=== PATIENT | male | born 1945 | race Caucasian/White ===

== ENCOUNTER → 2016-07-14 | Outpatient (CLI) | payer OTHER, BC ==
[2016-07-14 08:19] LABS: ALT/SGPT 31 U/L (12-78); BLOOD UREA NITROGEN 17 mg/dl (7-18); BUN/CREATININE RATIO 13.8 (10-20); CARBON DIOXIDE 22 mmol/L (21-32); CHLORIDE 108 mmol/L (98-107); GLUCOSE 98 mg/dl (70-99); POTASSIUM 4.2 mmol/L (3.5-5.1); SODIUM 141 mmol/L (136-145)
[2016-07-14 08:22] LABS: ALB/GLOB RATIO 1.2 (0.9-2); ALKALINE PHOSPHATASE 63 U/L (45-117); AST/SGOT 17 U/L (15-37); CHOLESTEROL 144 mg/dl (0-200); CHOLESTEROL/HDL RATIO 3.5; HDL CHOLESTEROL 41 mg/dl; LDL CHOLESTEROL CALCULATED 78 mg/dl; TRIGLYCERIDES 125 mg/dl (0-150); VERY LOW DENSITY LIPOPROT CALC 25 mg/dl
[2016-07-14 08:29] LABS: ESTIMATED AVERAGE GLUCOSE 126 mg/dl; HA1C FLAG Normal (Normal)
--- NOTE | 2016-07-18 12:10 | CODING QUERY MEDICAL NECESSITY ---
SUPPORTING DIAGNOSIS NEEDED A supporting diagnosis is required for the test/procedure performed on this patient in order for us to be reimbursed by the patient's insurance. Please provide a supporting diagnosis for the following test/procedure listed below next to the test name along with your signature. *If there is no additional diagnosis for this patient that would support the following test/procedure please document that below next to the test/procedure. Test(s)/Procedure(s) that require a supporting diagnosis: DOS 07/14 * Hba1c DIAGNOSIS: * Lipids DIAGNOSIS: Provider Signature: Date: Thank you Navya Hollis Health Information Management Once completed, please kindly fax back to [phone] For questions please call [phone]
== END | disposition home or self-care (01) ==
LOC: C.LABFOXMH 07:41
PROVIDERS: ATTEND Internal Medicine
DX: E88.81 Metabolic syndrome and other insulin resistance (principal)

== ENCOUNTER → 2016-09-01 | Outpatient (CLI) | payer OTHER, BC | END | disposition home or self-care (01) | LOC: C.LABBC 15:23 | PROVIDERS: ATTEND Urology | DX: R97.20 Elevated prostate specific antigen [PSA] (principal) ==

== ENCOUNTER → 2016-11-17 | Outpatient (CLI) | payer OTHER, BC ==
[2016-11-17 10:41] LABS: CALCIUM 9.3 mg/dl (8.5-10.1)
[2016-11-17 10:45] LABS: BLOOD UREA NITROGEN 21 mg/dl (7-18); BUN/CREATININE RATIO 15.8 (10-20); CARBON DIOXIDE 27 mmol/L (21-32); CHLORIDE 106 mmol/L (98-107); CHOLESTEROL 148 mg/dl (0-200); GLUCOSE 93 mg/dl (70-99); POTASSIUM 4.2 mmol/L (3.5-5.1); SODIUM 141 mmol/L (136-145); TRIGLYCERIDES 108 mg/dl (0-150); VERY LOW DENSITY LIPOPROT CALC 22 mg/dl
[2016-11-17 10:50] LABS: CHOLESTEROL/HDL RATIO 3.9; HDL CHOLESTEROL 38 mg/dl; LDL CHOLESTEROL CALCULATED 88 mg/dl
[2016-11-17 11:21] LABS: ESTIMATED AVERAGE GLUCOSE 120 mg/dl; HA1C FLAG Normal (Normal)
--- NOTE | 2016-11-22 06:59 | CODING QUERY MEDICAL NECESSITY ---
SUPPORTING DIAGNOSIS NEEDED Dr. Guerra, A supporting diagnosis is required for the test/procedure performed on this patient in order for us to be reimbursed by the patient's insurance. Please provide a supporting diagnosis for the following test/procedure listed below next to the test name along with your signature. *If there is no additional diagnosis for this patient that would support the following test/procedure please document that below next to the test/procedure. Test(s)/Procedure(s) that require a supporting diagnosis: * [id number] GLYCATED HEMOGLOBIN DIAGNOSIS: DATE OF SERVICE: 11/17/16 Provider Signature: Date: Thank you Chriss Hernandez [facility] Information Management Once completed, please kindly fax back to [phone] For questions please call [phone]
== END | disposition home or self-care (01) ==
LOC: C.LABFOXMH 09:02
PROVIDERS: ATTEND Internal Medicine
DX: E88.81 Metabolic syndrome and other insulin resistance (principal); M62.81 Muscle weakness (generalized); E11.9 Type 2 diabetes mellitus without complications

== ENCOUNTER → 2016-11-30 | Outpatient (CLI) | payer OTHER, BC ==
[2016-11-30 18:07] LABS: HEMATOCRIT 43.1 % (42-52); MEAN CELL VOLUME 88.5 fL (80-100); MEAN CORPUSCULAR HEMOGLOBIN 29.2 pg (25-34); MEAN CORPUSCULAR HGB CONC 32.9 g/dl (32-36); MEAN PLATELET VOLUME 13.8 fL (7.4-10.4); PLATELET COUNT 123 K/uL (130-400); PLT ESTIMATE NORMAL; RED BLOOD COUNT 4.87 M/uL (4.7-6.1)
== END | disposition home or self-care (01) ==
LOC: C.LABBC 14:19
PROVIDERS: ATTEND Internal Medicine
DX: M79.1 Myalgia (principal)

== ENCOUNTER → 2017-02-28 | Outpatient (CLI) | payer OTHER, BC ==
[2017-02-28 14:13] LABS: % FREE PSA 12.8 %; FREE PSA 0.74 ng/ml; PROSTATE SPECIFIC ANTIGEN 5.78 ng/ml (0.000-4.000)
== END | disposition home or self-care (01) ==
LOC: C.LABBC 11:07
PROVIDERS: ATTEND Urology
DX: R97.20 Elevated prostate specific antigen [PSA] (principal)

== ENCOUNTER → 2017-03-27 | Outpatient (CLI) | payer OTHER, BC ==
[2017-03-27 09:11] LABS: BLOOD UREA NITROGEN 18 mg/dl (7-18); BUN/CREATININE RATIO 14.9 (10-20); CALCIUM 9.3 mg/dl (8.5-10.1); CARBON DIOXIDE 26 mmol/L (21-32); CHLORIDE 106 mmol/L (98-107); GLUCOSE 102 mg/dl (70-99); POTASSIUM 4.2 mmol/L (3.5-5.1); SODIUM 137 mmol/L (136-145)
== END | disposition home or self-care (01) ==
LOC: C.LABFOXMH 08:52
PROVIDERS: ATTEND Internal Medicine
DX: E11.9 Type 2 diabetes mellitus without complications (principal)

== ENCOUNTER → 2017-04-17 | Outpatient (CLI) | payer OTHER, BC ==
[2017-04-17 10:58] LABS: BLOOD UREA NITROGEN 16 mg/dl (7-18); BUN/CREATININE RATIO 14.6 (10-20); CREATININE 1.09 mg/dl (0.60-1.40)
== END | disposition home or self-care (01) ==
LOC: C.LABBC 08:33
PROVIDERS: ATTEND Urology
DX: N40.0 Benign prostatic hyperplasia without lower urinary tract symptoms (principal)

== ENCOUNTER → 2017-05-05 | Outpatient (CLI) | payer OTHER, BC ==
[~2017-05-05] MED LIST: GADAVIST IV PRN
--- NOTE | 2017-05-05 15:36 | DIAGNOSTIC IMAGING REPORT ---
PROSTATE MRI COMBO CLINICAL HISTORY: 71 years-old Male presenting with R97.20 Elevated prostate specific antigen (PSA). TECHNIQUE: Multisequence, multiplanar MR imaging of the prostate was performed before and after the administration of intravenous contrast. Additional postprocessing was performed on a separate PastBook workstation by the radiologist for 3-D volumetric segmentation of the prostate and contouring of region(s) of interest (JAIDEN) for targeting. IV contrast: 9 mL of Gadavist. COMPARISON: None. FINDINGS: Prostate: The prostate measures 5.9 x 4.5 x 4.8 cm (DynaCAD prostate boundary segmentation volume 64 mL). Moderate changes of benign prostatic hyperplasia. Precontrast T1 weighted imaging demonstrates no evidence of intrinsic T1 hyperintensity to suggest hemorrhage. Seminal vesicles normal. Relative atrophy of the left peripheral zone. Crescentic T2 hypointensity along the interface of the peripheral and transition zones at the left base is felt to most likely represent stromal hypertrophy. Diffusion hyperintensity in the left peripheral zone at the base localized is immediately adjacent to the stromal hypertrophy within a BPH nodule. No suspicious lesion is apparent in the transition or peripheral zones. Bladder: Bladder wall thickening likely indicating chronic outlet obstruction. Bowel: Visualized portion of the rectum normal. Peritoneum: No free fluid in the pelvis. Lymph nodes: No lymphadenopathy in the visualized portion of the pelvis. Vasculature: Iliac vessels patent. Abdominal wall: Postsurgical changes of the right inguinal region with mesh in place. No significant recurrent inguinal hernia. Osseous structures: Normal bone marrow signal intensity. IMPRESSION: 1. No suspicious lesion is apparent in the transition or peripheral zone for targeted biopsy. 2. Benign prostatic hyperplasia. Electronically signed by: Marcel Hansen M.D. 05/05/2017 3:35 PM Dictated Date/Time: 05/05/2017 3:24 PM
== END | disposition home or self-care (01) ==
LOC: C.MRIBC 13:12
PROVIDERS: ATTEND Urology
DX: N40.0 Benign prostatic hyperplasia without lower urinary tract symptoms (principal); R97.20 Elevated prostate specific antigen [PSA]

== ENCOUNTER → 2017-07-20 | Outpatient (CLI) | payer OTHER, BC | END | disposition home or self-care (01) | LOC: C.PATHSPEC 17:30 | PROVIDERS: ATTEND Urology | DX: R97.20 Elevated prostate specific antigen [PSA] (principal) ==

== ENCOUNTER 2024-10-23 11:52 | Inpatient (IN) ==
--- NOTE | 2024-10-23 12:43 | Emergency Department Note ---
Impression & Plan Dysphagia, Pancytopenia, Cancer of tongue, Acute dehydration ED Provider Note NAME: ERLINDA JAFFE AGE: 78 SEX: M : 1945 ARRIVES VIA: Walk-In INFORMANT: Patient, ED PROVIDER(S): Trip Rasmussen MD CHIEF COMPLAINT: Referral for dehydration possible PEG tube MEDICAL DECISION MAKING: Patient presents due to concern for weight loss in the setting of cancer with a dyne aphasia. IV was established and blood work was obtained. Patient was ordered IV fluids. Patient's blood work shows significant neutropenia with a white count of 490 with neutrophils less than 500. Patient hemoglobin 9.5. Kidney function with prerenal azotemia but intrinsic function is appropriate. Pro-Que is not elevated TSH is normal. Chest x-ray that shows the possibility of a left lower lobe pneumonia. Given the patient's significant neutropenia the patient was covered with cefepime and azithromycin. I did inform the patient the findings. I spoke with the inpatient service after speaking with the patient's oncologist Dr. Urias and the patient was admitted by Dr. Ramos. Discussion w/ other healthcare providers: Dr. Urias oncology Dr. Ramos inpatient medicine service Prior /Outside records reviewed: I reviewed a prior radiation oncology visit note from September 04. Patient with a known history of malignant neoplasm of the base of the tongue. Differential diagnosis: Infection, dehydration, metabolic abnormality, hypo/hyperglycemia, electrolyte imbalance, anemia, UTI, pneumonia, thyroid dysfunction among others were considered. Diagnostics, as interpreted by me: ECG: Sinus with PACs, rate of 86 normal intervals normal axis no ST elevation. Cardiac monitoring: An order was placed for continuous cardiac monitoring. The monitor shows a rate of 72 with sinus rhythm. Patient was placed on pulse oximetry Medical decision rules: None Imaging studies: I informally interpreted the patient's Chest x-ray shows questionable pneumonia left base with formal report to follow. HPI: Patient presents as referral from cancer center due to concern for poor p.o. intake weight loss and dehydration. Patient reportedly does have a history of head neck cancer. The patient is undergoing radiation therapy. The patient reports that he has lost approximately 30 pounds in the last month or so. The patient states that he thought that he was improving after having some difficulty several weeks ago but seem to worsen just in the last several days. Patient has been trying to do Ensure meal replacement without significant improvement. PAST MEDICAL HISTORY: See Below PAST SURGICAL HISTORY: See Below SOCIAL HISTORY: See Below HOME MEDICATIONS: See Below ALLERGIES: See Below VITALS: See Below PHYSICAL EXAMINATION: GENERAL: NAD, non-toxic. Wearing glasses. EYE EXAM: Normal conjunctiva. PERRL, no anisocoria and EOM's grossly intact w/o pain. OROPHARYNX: Moist mucus membranes, grossly normal dentition. Posterior pharynx with secretions noted. No obvious mass noted. NECK: Trachea midline, no stridor. Supple, no nuchal rigidity, no adenopathy, non-tender. No signs of meningismus. FROM of the neck with good chin to chest and neck extension. LUNGS: Clear to auscultation. Normal chest wall mechanics. HEART: NSR, no MRG. ABDOMEN: Abdomen soft, non-tender, no masses, no rebound or guarding. BACK: No CVA TTP. SKIN: No rashes and no bruising. UPPER EXTREMITIES: Upper extremities are grossly normal. LOWER EXTREMITIES: Grossly normal, no edema. NEURO EXAM: Awake and alert, follows commands, no obvious facial asymmetry, normal speech, moves all 4 extremities. 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) Gross hematuria Androgen deprivation therapy Prostate cancer (Chronic 03/30/23) Elevated prostate specific antigen (PSA) Arthritis (Acute) BPH NOS w ur obs/LUTS (Acute) History of elevated PSA (Acute) Hypercholesterolemia (Acute) Kidney disease (Acute) Medical History Tobacco user Seborrheic keratoses (05/25/21) Seasonal allergies Inflamed seborrheic keratosis HTN (hypertension) Hemangioma (12/02/20) Body mass index [BMI] 33.0-33.9, adult (08/27/21) 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 Mother No problems noted. Social History Smoking Status: Former smoker Tobacco Type: Cigars Cigarettes Per Day: infrequent cigar smoking, has been a month or two; Second Hand Exposure: Yes; Do You Dip or Chew Tobacco: No; Hx Alcohol Use: No Hx Substance Use: No Preferred Language: Sami Communication Ability: Effective Visual Impairment: Limited Hearing Ability: Normal Windows Technical Specialist Required: No Beliefs That Will Affect Care: None Current Living Situation: Personal Care Facility current occupational status: retired Feels Safe at Home: Yes Safety Concerns: Feels Safe At This Time Childhood Exposure to Second-Hand Smoke: Yes Diet: regular Diet Comment: low fat caffeine: Yes during the past year weight has: remained stable Dental Care, Regularly: Yes Assistive Devices: None Allergies Allergies Allergy/AdvReac Type Severity Reaction Status Date / Time grass pollen Allergy Congested Verified 10/28/24 15:23 house dust Allergy Congested Verified 10/28/24 15:23 tree and shrub pollen Allergy Congested Verified 10/28/24 15:23 weed pollen Allergy Congested Verified 10/28/24 15:23 Home Meds Home Medications Medication Instructions Recorded Confirmed cholecalciferol (vitamin D3) 50 2,000 units PO DAILY 01/09/19 10/23/24 mcg (2,000 unit) capsule acetaminophen 325 mg tablet 650 mg PO HS 04/18/23 10/23/24 fluticasone propionate 50 1 spray intranasal DAILY PRN 04/18/23 10/23/24 mcg/actuation nasal allergies spray,suspension abiraterone 500 mg tablet (Zytiga) 1,000 mg PO UD 07/17/23 10/23/24 prednisone 5 mg tablet 5 mg PO UD 07/17/23 10/23/24 lisinopril 5 mg tablet 5 mg PO DAILY 08/14/23 10/23/24 coenzyme Q10 100 mg tablet 200 mg PO DAILY 04/22/24 10/23/24 psyllium husk 3.4 gram/5.4 gram 1 tbsp PO DAILY 04/22/24 10/23/24 oral powder ferrous sulfate 325 mg (65 mg 325 mg PO DAILY 06/06/24 10/23/24 iron) tablet (FeroSul) rosuvastatin 20 mg tablet 20 mg PO .MonFri 06/06/24 10/23/24 vitamin E (dl, acetate) 180 mg 180 mg PO DAILY 06/06/24 10/23/24 (400 unit) capsule calcium 600 mg (as carbonate)-vit 1 tab PO DAILY 09/04/24 10/23/24 D3 10 mcg (400 unit) chewable tablet (Calcium 600 with Vitamin D3) mecobalamin (vitamin B12) 5,000 5,000 mcg PO DAILY 09/04/24 10/23/24 mcg disintegrating tablet loratadine 10 mg tablet 10 mg PO DAILY 09/30/24 10/23/24 benzonatate 100 mg capsule 100 mg PO BID PRN Cough 10/21/24 10/23/24 ondansetron 8 mg disintegrating 8 mg PO Q8H PRN nausea and vomiting 10/21/24 10/23/24 tablet prochlorperazine maleate 10 mg 10 mg PO Q8H PRN n/v 10/21/24 10/23/24 tablet Previous Rx's Medication Instructions Recorded leuprolide (3 month) 22.5 mg (3 22.5 mg subcut ONCE Prostate 08/14/24 month) subcutaneous syringe Cancer #1 ea (Ed) Magic Mouthwash 300 mL mouthwash 10 ml mucous membrane ACHS PRN 10/22/24 sore throat #300 mL Results & Data (ED) Vital Signs Vital Signs - 24 hr 10/23/24 11:53 Temperature 37.1 C Temperature Source Oral Pulse Rate 94 H Pulse Strength Normal Respiratory Rate 17 Respiratory Effort / Characteristics Non-Labored Spontaneous Respiratory Depth Normal Respiratory Pattern Regular Blood Pressure 110/70 Blood Pressure Mean 83 Blood Pressure Position Sitting Pulse Oximetry 98 Oxygen Delivery Method Room Air Sepsis Recent Fever Within 48 Hours No Sepsis New/Unexplained Change in Mental Status No Sepsis Action Taken by Nursing No Action Required Home Medications Current Medication List: was personally reviewed by me Laboratory Data Attestation: I reviewed the patient's lab results. 10/28/24 05:43 10/28/24 05:43 Lab Results 10/23/24 10/23/24 Range/Units 12:57 12:59 WBC 0.49 L* (4.8-10.8) K/ul RBC 3.21 L (4.70-6.10) M/uL Hgb 9.5 L (14.0-18.0) g/dl Hct 28.1 L (42.0-52.0) % MCV 87.5 (80.0-100.0) fL MCH 29.6 (25.0-34.0) pg MCHC 33.8 (32.0-36.0) g/dL RDW Std Deviation 42.2 (36.4-46.3) fL RDW Coeff of Amelia 14.7 H (11.5-14.5) % Plt Count 41 L (130-400) K/uL MPV 11.9 (9.4-12.4) fL Neut # (Auto) < 0.50 L* (1.40-6.50) K/uL Toxic Granulation 1+ Dohle Bodies 1+ PT 11.6 (9.0-12.0) Seconds INR 1.1 (0.9-1.1) Sodium 139 (136-145) mmol/L Potassium 4.1 (3.5-5.1) mmol/L Chloride 103 (98-107) mmol/L Carbon Dioxide 27 (21-32) mmol/L Anion Gap 9 (3-11) BUN 38 H (6-23) mg/dl Creatinine 1.06 (0.6-1.4) mg/dl Est Cr Clr Drug Dosing 60.3 ml/min eGFR 71.83 BUN/Creatinine Ratio 35.8 H (10-20) Glucose 118 H (70-99(Fasting)) mg/dl Calcium 8.7 (8.6-10.3) mg/dl Phosphorus 2.7 (2.5-4.9) mg/dl Magnesium 1.9 (1.7-2.4) mg/dl Total Bilirubin 0.6 (0.2-1.0) mg/dl AST 17 (13-39) U/L ALT 19 (7-52) U/L Alkaline Phosphatase 75 (34-104) U/L Total Protein 6.5 (6.0-8.3) gm/dl Albumin 3.9 (3.4-5.0) gm/dl Globulin 2.6 (2.5-4.0) gm/dl Albumin/Globulin Ratio 1.5 (0.9-2) Procalcitonin 0.08 (0-0.5) ng/ml TSH 0.423 (0.300-4.500) uIu/ml Administered Medications Dextrose/Lactated Ringer's (D5w And Lactated Ringers) 1,000 mls @ 125 mls/hr IV .Q8H DIO Stop: 10/28/24 17:47 Last Infusion: 10/28/24 15:12 Dose: 0 mls/hr Documented By: Admin: 10/28/24 10:15 Dose: 125 mls/hr Documented By: Infusion: 10/28/24 09:10 Dose: Infused Documented By: VGFabio Admin: 10/28/24 01:10 Dose: 125 mls/hr Documented By: Infusion: 10/28/24 01:10 Dose: Infused Documented By: Admin: 10/27/24 17:08 Dose: 125 mls/hr Documented By: Infusion: 10/27/24 17:08 Dose: Infused Documented By: Admin: 10/27/24 09:13 Dose: 125 mls/hr Documented By: Infusion: 10/27/24 09:12 Dose: Infused Documented By: Admin: 10/27/24 01:01 Dose: 125 mls/hr Documented By: Infusion: 10/27/24 01:01 Dose: Infused Documented By: Admin: 10/26/24 16:53 Dose: 125 mls/hr Documented By: Infusion: 10/26/24 16:53 Dose: Infused Documented By: Admin: 10/26/24 08:58 Dose: 125 mls/hr Documented By: Infusion: 10/26/24 08:52 Dose: Infused Documented By: Admin: 10/26/24 00:35 Dose: 125 mls/hr Documented By: Infusion: 10/26/24 00:35 Dose: Infused Documented By: D Admin: 10/26/24 00:35 Dose: 125 mls/hr Documented By: Infusion: 10/26/24 00:34 Dose: Infused Documented By: D Admin: 10/25/24 16:34 Dose: 125 mls/hr Documented By: Infusion: 10/25/24 15:26 Dose: Infused Documented By: Infusion: 10/25/24 09:50 Dose: 125 mls/hr Documented By: Infusion: 10/25/24 08:54 Dose: 0 mls/hr Documented By: Infusion: 10/25/24 06:30 Dose: 125 mls/hr Documented By: Infusion: 10/25/24 06:10 Dose: 0 mls/hr Documented By: Admin: 10/25/24 06:10 Dose: 125 mls/hr Documented By: Infusion: 10/25/24 06:10 Dose: Infused Documented By: Admin: 10/24/24 22:39 Dose: 125 mls/hr Documented By: Infusion: 10/24/24 22:29 Dose: Infused Documented By: Admin: 10/24/24 14:28 Dose: 125 mls/hr Documented By: Infusion: 10/24/24 12:55 Dose: Infused Documented By: Admin: 10/24/24 04:55 Dose: 125 mls/hr Documented By: Infusion: 10/24/24 02:31 Dose: Infused Documented By: Admin: 10/23/24 18:31 Dose: 125 mls/hr Documented By: SAMM Vancomycin HCl (Vancomycin Hcl) 1,000 mg in 270 mls @ 200 mls/hr IV PREOP DIO; Protocol Stop: 10/28/24 18:00 Last Infusion: 10/28/24 14:10 Dose: Infused Documented By: Admin: 10/28/24 12:49 Dose: 200 mls/hr Documented By: LILIA Ondansetron HCl (Ondansetron Inj 2 Mg/Ml 2 Ml Vial) 4 mg IV Q6H PRN PRN Reason: Nausea And Vomiting Stop: 11/24/24 12:03 Last Admin: 10/26/24 16:53 Dose: 4 mg Documented By: Admin: 10/25/24 13:35 Dose: 4 mg Documented By: LORENA Discontinued Medications Filgrastim (Filgrastim 480 Mcg/0.8 Ml Syringe) 480 mcg SQ DAILY DIO Stop: 10/24/24 09:01 Last Admin: 10/24/24 10:03 Dose: 480 mcg Documented By: Admin: 10/23/24 18:31 Dose: 480 mcg Documented By: CSE Sodium Chloride (Nss) 1,000 mls @ 999 mls/hr IV .Q1H1M DIO Stop: 10/23/24 13:45 Last Infusion: 10/23/24 13:59 Dose: Infused Documented By: Admin: 10/23/24 12:49 Dose: 999 mls/hr Documented By: MONA Ceftriaxone Sodium (Rocephin) 2,000 mg in 50 mls @ 100 mls/hr IV NOW STA Stop: 10/23/24 14:18 Last Admin: 10/23/24 14:33 Dose: Not Given Documented By: RADHA Azithromycin (Zithromax) 500 mg in 255 mls @ 127.5 mls/hr IV NOW ONE Stop: 10/23/24 15:48 Last Infusion: 10/23/24 18:37 Dose: Infused Documented By: Admin: 10/23/24 15:53 Dose: 127.5 mls/hr Documented By: PERRY Cefepime HCl (Maxipime 2000mg) 2,000 mg in 20 mls @ 5 mls/min IV NOW STA; Protocol Stop: 10/23/24 14:25 Last Admin: 10/23/24 15:52 Dose: 5 mls/min Documented By: PERRY Sodium Chloride (Nss) 1,000 mls @ 999 mls/hr IV .Q1H1M ONE Stop: 10/23/24 15:24 Last Infusion: 10/23/24 16:25 Dose: Infused Documented By: Admin: 10/23/24 15:17 Dose: 999 mls/hr Documented By: RADHA Cefepime HCl (Maxipime 2000mg) 2,000 mg in 20 mls @ 5 mls/min IV Q8H [facility]; Protocol Stop: 10/29/24 00:00 Last Admin: 10/25/24 17:25 Dose: Not Given Documented By: Admin: 10/25/24 09:50 Dose: 5 mls/min Documented By: Admin: 10/24/24 22:38 Dose: 5 mls/min Documented By: Admin: 10/24/24 17:15 Dose: 5 mls/min Documented By: Admin: 10/24/24 08:35 Dose: 5 mls/min Documented By: Admin: 10/24/24 00:26 Dose: 5 mls/min Documented By: HFW Potassium Chloride (K Otto / Wtr) 10 meq in 100 mls @ 100 mls/hr IV Q1H DIO Stop: 10/25/24 10:29 Last Infusion: 10/25/24 12:57 Dose: Infused Documented By: Admin: 10/25/24 11:40 Dose: 100 mls/hr Documented By: Infusion: 10/25/24 11:40 Dose: Infused Documented By: Admin: 10/25/24 10:40 Dose: 100 mls/hr Documented By: Infusion: 10/25/24 10:37 Dose: Infused Documented By: Infusion: 10/25/24 09:50 Dose: 100 mls/hr Documented By: Infusion: 10/25/24 08:55 Dose: 0 mls/hr Documented By: Admin: 10/25/24 08:41 Dose: 100 mls/hr Documented By: LORENA Potassium Chloride (K Otto / Wtr) 10 meq in 100 mls @ 100 mls/hr IV Q1H DIO Stop: 10/26/24 09:29 Last Infusion: 10/26/24 11:03 Dose: Infused Documented By: Admin: 10/26/24 10:02 Dose: 100 mls/hr Documented By: Infusion: 10/26/24 10:02 Dose: Infused Documented By: Admin: 10/26/24 08:59 Dose: 100 mls/hr Documented By: AKUA Potassium Chloride (K Otto / Wtr) 10 meq in 100 mls @ 100 mls/hr IV Q1H DIO Stop: 10/27/24 11:59 Last Infusion: 10/27/24 15:53 Dose: Infused Documented By: Admin: 10/27/24 14:32 Dose: 100 mls/hr Documented By: Infusion: 10/27/24 14:32 Dose: Infused Documented By: Admin: 10/27/24 13:30 Dose: 100 mls/hr Documented By: Infusion: 10/27/24 13:29 Dose: Infused Documented By: Admin: 10/27/24 12:28 Dose: 100 mls/hr Documented By: Infusion: 10/27/24 12:27 Dose: Infused Documented By: Admin: 10/27/24 11:27 Dose: 100 mls/hr Documented By: AKUA Cefazolin Sodium (Ancef 2000mg) 2,000 mg in 15 mls @ 3.75 mls/min IV PREOP ONE; Protocol Stop: 10/28/24 13:22 Last Admin: 10/28/24 15:30 Dose: 3.75 mls/min Documented By: SAMSON Phytonadione (Phytonadione 5 Mg Tab) 5 mg PO NOW STA Stop: 10/27/24 10:26 Last Admin: 10/27/24 11:27 Dose: 5 mg Documented By: MRE Imaging Data Radiologist's Impression: Chest X-Ray 10/23/24 12:43 XR chest 1V portable CLINICAL HISTORY: cough COMPARISON STUDY: 10/09/2024 FINDINGS: Heart size and pulmonary vasculature are normal. There is mildly increased stranding at the left base. No other consolidation or pleural effusion. IMPRESSION: Atelectasis versus early pneumonia left lung base. ACT 112: Negative or not required by law. Electronically signed by: Alfonzo Galdamez M.D. 10/23/2024 1:24 PM Discharge Plan Visit Data Chief Complaint: Feeding/PEG Tube Replacement Stated Complaint: MAL NUTRITION, FEEDING TUBE, FROM [facility] ED Provider: Trip Rasmussen Discharge Problem: Dysphagia, Pancytopenia, Cancer of tongue, Acute dehydration Patient Disposition: Admitted As Inpatient Condition: Good Discharge Instructions Interventions: ED Discharge Assessment Last Done: 10/23/24 20:00 Discharge Problem: Dysphagia Qualifiers: Dysphagia type: unspecified Qualified Code(s): R13.10 - Dysphagia, unspecified
[2024-10-23] MEDS: SODIUM CHLORIDE 0.9% 1,000 ML IV SCH (12:49)
--- NOTE | 2024-10-23 13:26 | XRay Report ---
XR chest 1V portable CLINICAL HISTORY: cough COMPARISON STUDY: 10/09/2024 FINDINGS: Heart size and pulmonary vasculature are normal. There is mildly increased stranding at the left base. No other consolidation or pleural effusion. IMPRESSION: Atelectasis versus early pneumonia left lung base. ACT 112: Negative or not required by law. Electronically signed by: Alfonzo Galdamez M.D. 10/23/2024 1:24 PM
[2024-10-23 13:38] LABS: Neutrophils # (auto) < 0.50 K/uL (1.40-6.50); White Blood Count 0.49 K/ul (4.8-10.8)
[2024-10-23 13:42] LABS: Albumin Globulin Ratio 1.5 (0.9-2); Albumin Level 3.9 gm/dl (3.4-5.0); BUN Creatinine Ratio 35.8 (10-20); Bilirubin,Total 0.6 mg/dl (0.2-1.0); Calcium 8.7 mg/dl (8.6-10.3); Creatinine Clr Calc Pharmacy 60.3 ml/min; Globulin 2.6 gm/dl (2.5-4.0); Magnesium 1.9 mg/dl (1.7-2.4); Phosphorus 2.7 mg/dl (2.5-4.9); Potassium 4.1 mmol/L (3.5-5.1); Total Protein 6.5 gm/dl (6.0-8.3)
[2024-10-23 13:53] LABS: Hematocrit (blood only) 28.1 % (42.0-52.0); Hemoglobin 9.5 g/dl (14.0-18.0); Mean Corpuscular Hemoglobin 29.6 pg (25.0-34.0); Mean Corpuscular Hgb Conc 33.8 g/dL (32.0-36.0); Mean Corpuscular Volume 87.5 fL (80.0-100.0); Mean Platelet Volume 11.9 fL (9.4-12.4); Platelet Count 41 K/uL (130-400); RDW Coefficient of Variation 14.7 % (11.5-14.5); RDW Standard Deviation 42.2 fL (36.4-46.3); Red Blood Count 3.21 M/uL (4.70-6.10)
[2024-10-23 13:54] LABS: Dohle Bodies 1+; Thyroid Stimulating Hormone 0.423 uIu/ml (0.300-4.500); Toxic Granulation 1+
[2024-10-23] MEDS: cefTRIAXone SODIUM 2,000 MG/50 ML BAG IV STA (14:33)
--- NOTE | 2024-10-23 14:53 | History & Physical Report ---
Date of Service October 23, 2024 Assessment & Plan (1) Dysphagia: Plan: 78yo M under treatment for tongue cancer when chemo+radiation who presents with dysphagia, inadequate PO intake, 20lbs weight loss/4 weeks and who was referred for PEG placement. Dysphagia Without reported globus sensation or odynophagia w/ tongue cancer undergoing chemo and radiation.Referred by hematology oncology for placement of a PEG tube Does have some nausea however this patient is separate from this. 20 pounds of weight loss in the last month with inability to swallow any meaningful amount of liquid even small amounts of Ensure GI consulted for PEG tube placement Patient is neutropenic, G-CSF pending INR added. Platelet count 41. No signs of active bleeding. Goal periprocedural platelet count 50K. 1 unit of platelets ordered for transfusion given count less than 41. Requires irradiated blood products. If PEG is not placed tomorrow then defer additional platelet transfusion and trend CBC --> if remaining below 50K then give 1 unit day of procedure. N.p.o. at midnight RCRI class I risk. Tongue SCC SCC T1/N1 - Continue mouthwash twice daily Chemotherapy on hold, has completed 4 weeks of radiation Hematology/oncology following Pancytopenic in the setting of chemotherapy. Platelets ordered as noted. No indication for blood transfusion at this time Patient is neutropenic with suspected aspiration pneumonia. Confirmed with hematology/oncology that he is not getting any radiation to the chest. Appropriate candidate for GCSF. 4080 mcg x 2 days Prostate cancer Continued on surveillance PSAs, Ed Suspected aspiration left lung pneumonia Chest x-ray is with atelectasis versus left lung early pneumonia. Given neutropenia, increased cough, increased sputum production and ?aspiration --> treated empirically for potential developing pneumonia. He has not been febrile. - Cefepime q8h continued. - Sputum culture pending. Blood culture pending Hypertension Normotensive on admission Lisinopril held while n.p.o. DVT prophylaxis: SCDs. Pharmacal prophylaxis held both due to thrombocytopenia and pending PEG placement. If stable postprocedure add Lovenox CODE STATUS: Full code. For the patient bedside. In the event of an emergency his medical decision-maker would be Renetta Gtz available at [phone]. If she is not available then would want his friend Jose Multani to be his decision- maker, Jose is available at [phone]. Diet: N.p.o. Disposition: MSO (2) Malignant neoplasm of base of tongue: (3) BPH NOS w ur obs/LUTS: (4) Kidney disease: History of Present Illness Primary Care Provider: Jose Guerra MD Mr. 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 [address] Moreno so far for tongue cancer Is supposed to have 6 chemo treatments, 4th last week was cancelled and this weeks was cancelled due to feeling poorly and neutropenia Dung reports he has a lot of mucous drainage x3 weeks. He has had a chronic cough over that time and bringing up clear mucous. No fevers/chills/sweats. No dyspnea. Swallowing has been poor/getting worse x2-3 weeks, and seems much worse since radiation. Has been trying to drink ensure, but has trouble even getting small sips down. Does get nausea which is improved with zofran. Feels his inability to swallow is separate from his nause, and just cannot swallow. When he is able to get a small amount of liquid down he quickly coughs and brings up mucous. Has lost 24lbs (180.2lbs this morning, beginning of September 202.9lbs) in the last 4 weeks due to not being able to eat. Was told he might need a PEG which he would like if indicated. Urine output has decreased, but still voiding twice daily and urine is noticably dark last few days. No dysuria. No abdominal pain No globus sensation in the through NO chest pain, no chest pressure No history of ID no history of CVA No history of DM Has not been able to any meds for last few days due to inability to swallow Medical History: Reviewed Medications: Reviewed Surgical History: Reviewed Family history: Reviewed Allergies: Reviewed Social History: No tobacco/ETOH use Code Status: Full Allergies Allergy/AdvReac Type Severity Reaction Status Date / Time grass pollen Allergy Congested Verified 10/23/24 14:44 house dust Allergy Congested Verified 10/23/24 14:44 tree and shrub pollen Allergy Congested Verified 10/23/24 14:44 weed pollen Allergy Congested Verified 10/23/24 14:44 Home Medications Medication Instructions Recorded Confirmed Type cholecalciferol (vitamin D3) 50 2,000 units PO DAILY 01/09/19 10/23/24 History mcg (2,000 unit) capsule acetaminophen 325 mg tablet 650 mg PO HS 04/18/23 10/23/24 History fluticasone propionate 50 1 spray intranasal DAILY PRN 04/18/23 10/23/24 History mcg/actuation nasal allergies spray,suspension abiraterone 500 mg tablet (Zytiga) 1,000 mg PO UD 07/17/23 10/23/24 History prednisone 5 mg tablet 5 mg PO UD 07/17/23 10/23/24 History lisinopril 5 mg tablet 5 mg PO DAILY 08/14/23 10/23/24 History coenzyme Q10 100 mg tablet 200 mg PO DAILY 04/22/24 10/23/24 History psyllium husk 3.4 gram/5.4 gram 1 tbsp PO DAILY 04/22/24 10/23/24 History oral powder ferrous sulfate 325 mg (65 mg 325 mg PO DAILY 06/06/24 10/23/24 History iron) tablet (FeroSul) rosuvastatin 20 mg tablet 20 mg PO .MonFri 06/06/24 10/23/24 History vitamin E (dl, acetate) 180 mg 180 mg PO DAILY 06/06/24 10/23/24 History (400 unit) capsule leuprolide (3 month) 22.5 mg (3 22.5 mg subcut ONCE Prostate 08/14/24 10/23/24 Rx month) subcutaneous syringe Cancer #1 ea (Ed) calcium 600 mg (as carbonate)-vit 1 tab PO DAILY 09/04/24 10/23/24 History D3 10 mcg (400 unit) chewable tablet (Calcium 600 with Vitamin D3) mecobalamin (vitamin B12) 5,000 5,000 mcg PO DAILY 09/04/24 10/23/24 History mcg disintegrating tablet loratadine 10 mg tablet 10 mg PO DAILY 09/30/24 10/23/24 History benzonatate 100 mg capsule 100 mg PO BID PRN Cough 10/21/24 10/23/24 History ondansetron 8 mg disintegrating 8 mg PO Q8H PRN nausea and vomiting 10/21/24 10/23/24 History tablet prochlorperazine maleate 10 mg 10 mg PO Q8H PRN n/v 10/21/24 10/23/24 History tablet Magic Mouthwash 300 mL mouthwash 10 ml mucous membrane ACHS PRN 10/22/24 10/23/24 Rx sore throat #300 mL Past Med/Surg History Problem List (Updated 10/23/24 @ 16:14 by Marcel Ramos MD) Dysphagia Malignant neoplasm of base of tongue (Chronic 08/12/24) Gross hematuria Androgen deprivation therapy Prostate cancer (Chronic 03/30/23) Elevated prostate specific antigen (PSA) Arthritis (Acute) BPH NOS w ur obs/LUTS (Acute) History of elevated PSA (Acute) Hypercholesterolemia (Acute) Kidney disease (Acute) Surgical History (Updated 07/23/24 @ 09:40 by Gabriela Dallas RN) History of biopsy (07/03/24) FNA Left Neck Status post biopsy of kidney H/O excision of hemangioma History of colonoscopy (2022) Family History (Updated 04/18/23 @ 08:16 by Gabriela Dallas RN) Father No problems noted. Mother No problems noted. Social History (Updated 04/18/23 @ 08:19 by Gabriela Dallas RN) Smoking Status: Former smoker Tobacco Type: Cigars Cigarettes Per Day: infrequent cigar smoking, has been a month or two; Second Hand Exposure: Yes; Do You Dip or Chew Tobacco: No; Hx Alcohol Use: No Hx Substance Use: No Preferred Language: Setswana Communication Ability: Effective Visual Impairment: Limited Hearing Ability: Normal Machine Milker Required: No Beliefs That Will Affect Care: Spiritual current occupational status: retired Feels Safe at Home: Yes Childhood Exposure to Second-Hand Smoke: Yes Diet: regular Diet Comment: low fat caffeine: Yes during the past year weight has: remained stable Dental Care, Regularly: Yes Assistive Devices: Glasses Physical Exam Physical Exam: General: A&Ox3. NAD. Cooperative. HEENT: Atraumatic, normocephalic. Pulm: CTAB A&P. -wheezes, -rales, -rhonchi. Symmetrical chest rise. No increased work of breathing. No respiratory distress. Cardiac: RRR, -mrg. Radial pulses intact and symmetrical. Abdominal: Nontender, nondistended, soft. BS present. +numerous ochoa angiomas. Ext: warm, dry Results & Data Results & Data Vital Signs (Past 12 Hours) Vital Signs Temp Pulse Pulse Resp BP BP Pulse Ox 10/23/24 14:00 85 20 123/69 94 10/23/24 13:02 85 10/23/24 12:59 85 25 H 123/69 94 10/23/24 11:53 37.1 C 94 H 17 110/70 98 O2 Del Method 10/23/24 14:00 Room Air 10/23/24 13:02 10/23/24 12:59 Room Air 10/23/24 11:53 Room Air PG Care Time/CCT Total # of Minutes Spent Total Time Spent with Patient: Total time spent is greater than 50% in coordination of care (as documented) at patient's floor/unit and/or counseling patient: Coding Level of Care Code 15204 INT INP/OBS CARE 3/75MIN Diagnoses Dysphagia R13.10 Malignant neoplasm of base of tongue C01 BPH NOS w ur obs/LUTS N40.1 Kidney disease N28.9
[2024-10-23] MEDS: SODIUM CHLORIDE 0.9% 1,000 ML IV ONE (15:17)
[2024-10-23] MEDS: CEFEPIME 2000MG 2,000 MG/20 ML SYR IV STA (15:52)
[2024-10-23] MEDS: AZITHROMYCIN 500 MG/255 ML BAG IV ONE (15:53)
[2024-10-23] MEDS ORDERED: MoRPHine SULFATE 2 MG/ML CARP IV PRN (16:16)
[2024-10-23] MEDS ORDERED: ACETAMINOPHEN 1,000 MG/100 ML VIAL IV PRN (16:16)
--- NOTE | 2024-10-23 16:28 | Electrocardiogram Report ---
Test Reason : Blood Pressure : */* mmHG Vent. Rate : 86 BPM Atrial Rate : 86 BPM P-R Int : 132 ms QRS Dur : 100 ms QT Int : 370 ms P-R-T Axes : 52 0 27 degrees QTcB Int : 442 ms Sinus rhythm with Premature atrial complexes Otherwise normal ECG No previous ECGs available Confirmed by Mic Lee ([id number]) on 10/23/2024 4:27:31 PM Referred By: REFERRED SELF Confirmed By: Mic Lee
[2024-10-23] MEDS ORDERED: SODIUM CHLORIDE 0.9% 100 ML IV PRN (17:48)
[2024-10-23 18:13] LABS: INR 1.1 (0.9-1.1); Prothrombin Time 11.6 Seconds (9.0-12.0)
[2024-10-23] MEDS: D5W AND LACTATED RINGERS 1,000 ML IV SCH (18:31)
[2024-10-23] MEDS: FILGRASTIM 480 MCG/0.8 ML SYRINGE SQ SCH (18:31)
[2024-10-24] MEDS: CEFEPIME 2000MG 2,000 MG/20 ML SYR IV SCH (00:26)
[2024-10-24 06:25] LABS: BUN Creatinine Ratio 36.9 (10-20); Calcium 7.9 mg/dl (8.6-10.3); Potassium 3.6 mmol/L (3.5-5.1)
[2024-10-24 06:37] LABS: Hematocrit (blood only) 23.3 % (42.0-52.0); Hemoglobin 7.9 g/dl (14.0-18.0); Mean Corpuscular Hemoglobin 29.4 pg (25.0-34.0); Mean Corpuscular Hgb Conc 33.9 g/dL (32.0-36.0); Mean Corpuscular Volume 86.6 fL (80.0-100.0); Mean Platelet Volume 12.3 fL (9.4-12.4); Platelet Count 43 K/uL (130-400); RDW Coefficient of Variation 14.6 % (11.5-14.5); RDW Standard Deviation 41.8 fL (36.4-46.3); Red Blood Count 2.69 M/uL (4.70-6.10); White Blood Count 0.71 K/ul (4.8-10.8)
[2024-10-24 06:43] LABS: INR 1.2 (0.9-1.1); Prothrombin Time 12.4 Seconds (9.0-12.0)
[2024-10-24 07:23] LABS: ALC (manual) 0.18 K/uL (1.2-3.4); ANC (manual) 0.29 K/uL (1.4-6.5); Blast # (manual) 0.01 K/uL (0-0); Blast Cells % (manual) 2 %; Dohle Bodies 1+; Lymphocytes # (manual) 0.18 K/uL (1.2-3.4); Lymphocytes % (manual) 26 %; Monocytes # (manual) 0.22 K/uL (0.11-0.59); Monocytes % (manual) 31 %; Neutrophils # (manual) 0.29 K/uL (1.40-6.50); Neutrophils % (manual) 41 %; Ovalocytes 1+; Polychromasia 1+; Toxic Granulation 2+; Toxic Vacuolation 1+
--- NOTE | 2024-10-24 07:32 | Hospitalist Progress Note ---
Date of Service October 24, 2024 Assessment & Plan (1) Dysphagia: (2) Malignant neoplasm of base of tongue: (3) Pancytopenia: Plan #Dysphagia: - difficulty swallowing for the past 4 weeks - weight loss of 20 pounds - no globus sensation or pain with swallowing - GI consulted - pending PEG placement tomorrow afternoon 10/25 pending platelets over 50k, NPO at midnight tonight #Tongue cancer: - in the middle of radiation and has completed 3 chemotherapy treatments out of a planned 6 - previous two chemotherapy treatments held due to feeling poorly #Pancytopenia: - WBCs remaining stable yet very low: 0.79 -> 0.49 -> 0.71 - platelets slightly improvin -> 41 -> 43 - Hgb trending down: 10.3 -> 9.5 -> 7.9 - plan for 1 unit of platelets before PEG placement #Aspiration pneumonia vs. atelectasis: - chest x-ray showed mildly increased stranding at the left base - atelectasis versus left lung early pneumonia - course lung sounds bilaterally - treated empirically for potential developing pneumonia with cefepime q8 - sputum culture grew staph aureus - blood culture pending #Hyperlipidemia: - holding rosuvastatin pending PEG placement Dispo: med/surg Diet: NPO Code Status: full code DVT PPx: SCDs Admission and Anticipated Discharge Date Admission Date: October 23, 2024 Supervising Physician Co-Signing Physician Notes I personally examined the patient and verified all pina points of history and exam, discussed case, and agree with decision making with Dr Acuña and Fabio Staton MS2 feeling reasonably ok. does have a lot of mucous and some coughing fits, but no cp no sob no tan no fevers vitals noted nad heent nc at mmm lungs cta b/l no rrw good effort skin no rashes no pallor or icterus severe protein calorie malnutrition - due to tongue cancer. for PEG neutropenia/thrombocytopenia - due to chemotherapy. productive cough - no hypoxia, fever, cp, SOB/TAN, CXR questionable infiltrate but not overt, lungs clear, but is quite neutropenic - will continue abx for now, serial exams/serial labs but not convinced there's truly a pneumonia, may be able to dc abx soon tongue cancer - ongoing XRT/chemo once nutrition situation better remedied DVT proph - pharmacologic contrainidcated due to thrombocytopenia, SCDs ordered Subjective Dung Moser is a 78 year old male currently undergoing treatment for tongue cancer who presented to the ED on 10/24 at the advice of heme/onc due to a 20# weight loss over the past four weeks due to dysphagia. He is awaiting PEG tube placement by GI. This morning, Dung is feeling better than yesterday. He says he feels he is able to swallow some today. He reports that his main difficulty with eating has been pain with swallowing, no globus sensation. He used Magic Mouthwash, but still had pain. He reports that he was drinking two Ensures per day up until 3 days ago when he was only able to take a few sips per day. He stopped his oral medications four days ago due to inability to swallow. He has had nausea throughout chemotherapy which has been managed with ondansetron. Occasional vomiting with chemotherapy. No abdominal pain. No issues with urination. Regarding his respiratory symptoms, he reports that he has had a large amount of clear stringy mucous over the past 3 weeks. He said this happened one time in the past about a year ago and cleared. He has not felt short of breath or had chest pain, does feel he chokes on his breath when he takes a deep breath. Cough occurs only to bring up mucous. Does not recall choking or aspirating on food. Review of Systems 2 Review of Systems: As per HPI. Physical Exam 2 Physical Exam: GENERAL: A&Ox3. No acute distress. Appears stated age. Affect and speech appropriate. HEENT: PERRLA, EOMI, Conjunctiva clear. NECK: Supple, No lymphadenopathy. No carotid bruits. HEART: RRR. No murmurs, gallops or clicks. LUNGS: Breathing not labored, course breath sounds bilaterally. ABDOMEN: Positive bowel sounds, soft, nontender, non-distended. No hepatosplenomegaly noted. No masses. EXTREMITIES: No edema, clubbing or cyanosis. No joint swelling or tenderness. Results & Data Results & Data Vital Signs (Past 12 Hours) Vital Signs Temp Pulse Pulse Resp BP BP Pulse Ox 10/23/24 22:14 36.8 C 76 16 96/61 L 96 10/23/24 22:14 36.8 C 76 16 96/61 L 96 10/23/24 21:43 36.9 C 80 18 99/61 L 96 10/23/24 20:43 36.8 C 81 18 114/65 96 10/23/24 20:13 36.8 C 78 18 114/71 96 10/23/24 19:58 36.7 C 86 16 108/68 95 10/23/24 19:55 10/23/24 19:42 36.8 C 86 18 117/57 L 95 10/23/24 19:35 36.8 C 86 18 117/57 L 95 O2 Del Method 10/23/24 22:14 10/23/24 22:14 10/23/24 21:43 10/23/24 20:43 10/23/24 20:13 10/23/24 19:58 10/23/24 19:55 Room Air 10/23/24 19:42 10/23/24 19:35 Room Air Laboratory Results 10/24/24 05:37 10/24/24 05:37 Resident Activity Tracking Resident Involvement: Resident Care Provided Care Provided: Adult [facility] Resident Supervision Co-Signing Physician Notes I personally performed the physical examination and medical decision making. I have verified the medical students documentation for this encounter - exceptions noted as below Doing well. Still having difficulty swallowing. Planning for PEG Gen: well appearing patient in NAD HEENT: AT NC MMM Resp: no increased work of breathing CV: clinically well perfused Abd: non-distended MSK: no obvious deformities Skin: no rashes or bruising Neuro: alert and oriented Psych: appropriate mood and affect #Oropharyngeal Cancer #Dysphagia Ongoing chemotherapy for tongue cancer. Developing dysphagia over the last 4 weeks with significant weight loss. Consult speech. Plan for PEG tomorrow for ongoing nutrition needs. NPO @ midnight. Give 1 unit of platelets day of procedure - irradiated as patient neutropenic. Emulsion Operator consulted. #Pancytopenia Severe, likely in the setting of chemotherapy. Plan as above. Continue neutropenic precautions #Aspiration pneumonia vs atelectasis incentive spirometry, flutter valve, empiric abx pending culture results
--- NOTE | 2024-10-24 10:45 | Gastrointestinal Consultation ---
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 EGD w/ PEG placement discussed in detail. We will need PLT count over 50 and his neutropenia to resolve prior to EGD w/ PEG placement. He verbalized understand. Keep NPO after midnight to re-assess tomorrow as his counts do appear to be trending up We appreciate assistance in the management of any serological abnormality and corrections to include: hemoglobin >7, INR <2, platelets >50,000, potassium levels >3.5 but <5.3, and sodium levels within 5 points of the reference range prior to endoscopic evaluation. Thank you for allowing us to participate in the care of this patient. Please call with any acute changes, questions or concerns. Please see addendum below with additional recommendation from my supervising physician. (2) Malignant neoplasm of base of tongue: Supervising Physician Co-Signing Physician Notes I personally saw and examined the patient. I have reviewed the chart and agree with the documentation provided by the PRINCIPAL SOFTWARE ARCHITECT including discussion about the assessment, treatment and plan. 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 EGD w/ PEG placement discussed in detail. He notes he has had difficulty with oral intake related to oral pain/discomfort for at least 2-3 weeks but this has significant worsened about four days ago. Pain is slightly improved this AM but still ongoing/present. Very nice gentleman who has a good Mallampati he can open his mouth and needs a PEG. We have to wait until his platelets and neutropenia resolve noted to place this PEG safely. 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 EGD w/ PEG placement discussed in detail. He notes he has had difficulty with oral intake related to oral pain/discomfort for at least 2-3 weeks but this has significant worsened about four days ago. Pain is slightly improved this AM but still ongoing/present. Allergies Allergy/AdvReac Type Severity Reaction Status Date / Time grass pollen Allergy Congested Verified 10/23/24 14:44 house dust Allergy Congested Verified 10/23/24 14:44 tree and shrub pollen Allergy Congested Verified 10/23/24 14:44 weed pollen Allergy Congested Verified 10/23/24 14:44 Home Medications Medication Instructions Recorded Confirmed Type cholecalciferol (vitamin D3) 50 2,000 units PO DAILY 01/09/19 10/23/24 History mcg (2,000 unit) capsule acetaminophen 325 mg tablet 650 mg PO HS 04/18/23 10/23/24 History fluticasone propionate 50 1 spray intranasal DAILY PRN 04/18/23 10/23/24 History mcg/actuation nasal allergies spray,suspension abiraterone 500 mg tablet (Zytiga) 1,000 mg PO UD 07/17/23 10/23/24 History prednisone 5 mg tablet 5 mg PO UD 07/17/23 10/23/24 History lisinopril 5 mg tablet 5 mg PO DAILY 08/14/23 10/23/24 History coenzyme Q10 100 mg tablet 200 mg PO DAILY 04/22/24 10/23/24 History psyllium husk 3.4 gram/5.4 gram 1 tbsp PO DAILY 04/22/24 10/23/24 History oral powder ferrous sulfate 325 mg (65 mg 325 mg PO DAILY 06/06/24 10/23/24 History iron) tablet (FeroSul) rosuvastatin 20 mg tablet 20 mg PO .MonFri 06/06/24 10/23/24 History vitamin E (dl, acetate) 180 mg 180 mg PO DAILY 06/06/24 10/23/24 History (400 unit) capsule leuprolide (3 month) 22.5 mg (3 22.5 mg subcut ONCE Prostate 08/14/24 10/23/24 Rx month) subcutaneous syringe Cancer #1 ea (Ed) calcium 600 mg (as carbonate)-vit 1 tab PO DAILY 09/04/24 10/23/24 History D3 10 mcg (400 unit) chewable tablet (Calcium 600 with Vitamin D3) mecobalamin (vitamin B12) 5,000 5,000 mcg PO DAILY 09/04/24 10/23/24 History mcg disintegrating tablet loratadine 10 mg tablet 10 mg PO DAILY 09/30/24 10/23/24 History benzonatate 100 mg capsule 100 mg PO BID PRN Cough 10/21/24 10/23/24 History ondansetron 8 mg disintegrating 8 mg PO Q8H PRN nausea and vomiting 10/21/24 10/23/24 History tablet prochlorperazine maleate 10 mg 10 mg PO Q8H PRN n/v 10/21/24 10/23/24 History tablet Magic Mouthwash 300 mL mouthwash 10 ml mucous membrane ACHS PRN 10/22/24 10/23/24 Rx sore throat #300 mL Patient History Surgical History (Updated 07/23/24 @ 09:40 by Gabriela Dallas RN) History of biopsy (07/03/24) FNA Left Neck Status post biopsy of kidney H/O excision of hemangioma History of colonoscopy (2022) Family History (Updated 04/18/23 @ 08:16 by Gabriela Dallas RN) Father No problems noted. Mother No problems noted. Social History (Updated 04/18/23 @ 08:19 by Gabriela Dallas RN) Smoking Status: Former smoker Tobacco Type: Cigars Cigarettes Per Day: infrequent cigar smoking, has been a month or two; Second Hand Exposure: Yes; Do You Dip or Chew Tobacco: No; Hx Alcohol Use: No Hx Substance Use: No Preferred Language: Iraqi Communication Ability: Effective Visual Impairment: Limited Hearing Ability: Normal Curriculum Assistant Principal Required: No Beliefs That Will Affect Care: None Current Living Situation: Personal Care Facility current occupational status: retired Feels Safe at Home: Yes Safety Concerns: Feels Safe At This Time Childhood Exposure to Second-Hand Smoke: Yes Diet: regular Diet Comment: low fat caffeine: Yes during the past year weight has: remained stable Dental Care, Regularly: Yes Assistive Devices: None Review of Systems Review of Systems: All other findings negative except as noted in HPI. Physical Exam Constitutional: WD/WN, vitals as above Gastrointestinal (Abdomen): normal bowel sounds, soft, nontender, no hepatosplenomegaly Skin: no rashes, warm and dry Results & Data Vital Signs (Past 12 Hours) Vital Signs Temp Pulse Resp BP Pulse Ox O2 Del Method 10/24/24 07:41 98.1 F 68 16 104/65 98 Room Air Laboratory Results 10/24/24 10/23/24 10/23/24 Range/Units 05:37 16:29 12:59 WBC 0.71 L* 0.49 L* (4.8-10.8) K/ul RBC 2.69 L 3.21 L (4.70-6.10) M/uL Hgb 7.9 L 9.5 L (14.0-18.0) g/dl Hct 23.3 L 28.1 L (42.0-52.0) % MCV 86.6 87.5 (80.0-100.0) fL MCH 29.4 29.6 (25.0-34.0) pg MCHC 33.9 33.8 (32.0-36.0) g/dL RDW Std Deviation 41.8 42.2 (36.4-46.3) fL RDW Coeff of Amelia 14.6 H 14.7 H (11.5-14.5) % Plt Count 43 L 41 L (130-400) K/uL MPV 12.3 11.9 (9.4-12.4) fL Neut # (Auto) < 0.50 L* (1.40-6.50) K/uL Neutrophils % (Manual) 41 % Lymphocytes % (Manual) 26 % Monocytes % (Manual) 31 % Blast Cells % (Manual) 2 % Neutrophils # (Manual) 0.29 L (1.40-6.50) K/uL Total Absolute Neuts 0.29 L* (1.4-6.5) K/uL Lymphocytes # (Manual) 0.18 L (1.2-3.4) K/uL Total Abs Lymphocytes 0.18 L (1.2-3.4) K/uL Monocytes # (Manual) 0.22 (0.11-0.59) K/uL Blast Cells # (Man) 0.01 H (0-0) K/uL Blood Smear Review Toxic Granulation 2+ 1+ Toxic Vacuolation 1+ Dohle Bodies 1+ 1+ Polychromasia 1+ Ovalocytes 1+ PT 12.4 H (9.0-12.0) Seconds INR 1.2 H (0.9-1.1) Sodium 140 139 (136-145) mmol/L Potassium 3.6 4.1 (3.5-5.1) mmol/L Chloride 108 H 103 (98-107) mmol/L Carbon Dioxide 26 27 (21-32) mmol/L Anion Gap 6 9 (3-11) BUN 31 H 38 H (6-23) mg/dl Creatinine 0.84 1.06 (0.6-1.4) mg/dl Est Cr Clr Drug Dosing 76.0 60.3 ml/min eGFR 89.26 71.83 BUN/Creatinine Ratio 36.9 H 35.8 H (10-20) Glucose 117 H 118 H (70-99(Fasting)) mg/dl Calcium 7.9 L 8.7 (8.6-10.3) mg/dl Phosphorus 2.7 (2.5-4.9) mg/dl Magnesium 1.9 (1.7-2.4) mg/dl Total Bilirubin 0.6 (0.2-1.0) mg/dl AST 17 (13-39) U/L ALT 19 (7-52) U/L Alkaline Phosphatase 75 (34-104) U/L Total Protein 6.5 (6.0-8.3) gm/dl Albumin 3.9 (3.4-5.0) gm/dl Globulin 2.6 (2.5-4.0) gm/dl Albumin/Globulin Ratio 1.5 (0.9-2) Procalcitonin (0-0.5) ng/ml TSH 0.423 (0.300-4.500) uIu/ml Blood Type A Positive Antibody Screen NEGATIVE 10/23/24 Range/Units 12:57 WBC (4.8-10.8) K/ul RBC (4.70-6.10) M/uL Hgb (14.0-18.0) g/dl Hct (42.0-52.0) % MCV (80.0-100.0) fL MCH (25.0-34.0) pg MCHC (32.0-36.0) g/dL RDW Std Deviation (36.4-46.3) fL RDW Coeff of Amelia (11.5-14.5) % Plt Count (130-400) K/uL MPV (9.4-12.4) fL Neut # (Auto) (1.40-6.50) K/uL Neutrophils % (Manual) % Lymphocytes % (Manual) % Monocytes % (Manual) % Blast Cells % (Manual) % Neutrophils # (Manual) (1.40-6.50) K/uL Total Absolute Neuts (1.4-6.5) K/uL Lymphocytes # (Manual) (1.2-3.4) K/uL Total Abs Lymphocytes (1.2-3.4) K/uL Monocytes # (Manual) (0.11-0.59) K/uL Blast Cells # (Man) (0-0) K/uL Blood Smear Review Toxic Granulation Toxic Vacuolation Dohle Bodies Polychromasia Ovalocytes PT 11.6 (9.0-12.0) Seconds INR 1.1 (0.9-1.1) Sodium (136-145) mmol/L Potassium (3.5-5.1) mmol/L Chloride (98-107) mmol/L Carbon Dioxide (21-32) mmol/L Anion Gap (3-11) BUN (6-23) mg/dl Creatinine (0.6-1.4) mg/dl Est Cr Clr Drug Dosing ml/min eGFR BUN/Creatinine Ratio (10-20) Glucose (70-99(Fasting)) mg/dl Calcium (8.6-10.3) mg/dl Phosphorus (2.5-4.9) mg/dl Magnesium (1.7-2.4) mg/dl Total Bilirubin (0.2-1.0) mg/dl AST (13-39) U/L ALT (7-52) U/L Alkaline Phosphatase (34-104) U/L Total Protein (6.0-8.3) gm/dl Albumin (3.4-5.0) gm/dl Globulin (2.5-4.0) gm/dl Albumin/Globulin Ratio (0.9-2) Procalcitonin 0.08 (0-0.5) ng/ml TSH (0.300-4.500) uIu/ml Blood Type Antibody Screen PG Care Time/CCT Total # of Minutes Spent Total Time Spent with Patient: Total time spent is greater than 50% in coordination of care (as documented) at patient's floor/unit and/or counseling patient: Coding Level of Care Code 48389 INT INP/OBS CARE MIN Diagnoses Pancytopenia D61.818 Malignant neoplasm of base of tongue C01
--- NOTE | 2024-10-24 18:08 | Billing Data ---
Date of Service October 24, 2024 Coding Level of Care Code 85436 SUB INP/OBS CARE
[2024-10-24] MEDS ORDERED: SODIUM CHLORIDE 0.9% 100 ML IV PRN (23:43)
[2024-10-25 06:25] LABS: BUN Creatinine Ratio 27.3 (10-20); Calcium 7.9 mg/dl (8.6-10.3); Potassium 3.3 mmol/L (3.5-5.1)
[2024-10-25 06:39] LABS: Hematocrit (blood only) 23.6 % (42.0-52.0); Hemoglobin 7.9 g/dl (14.0-18.0); Mean Corpuscular Hgb Conc 33.5 g/dL (32.0-36.0); Mean Corpuscular Volume 86.8 fL (80.0-100.0); Mean Platelet Volume 12.4 fL (9.4-12.4); Platelet Count 45 K/uL (130-400); RDW Coefficient of Variation 14.9 % (11.5-14.5); RDW Standard Deviation 43.1 fL (36.4-46.3); Red Blood Count 2.72 M/uL (4.70-6.10); White Blood Count 0.81 K/ul (4.8-10.8)
[2024-10-25 06:46] LABS: Basophils # (auto) 0.01 K/uL (0.00-0.20); Basophils % (auto) 1.2 %; Dohle Bodies 2+; Giant Platelets 1+; Immature Granulocytes # (auto) 0.03 K/uL (0.01-0.20); Immature Granulocytes % (auto) 3.7 %; Lymphocytes # (auto) 0.13 K/uL (1.20-3.40); Neutrophils # (auto) 0.34 K/uL (1.40-6.50); Neutrophils % (auto) 42.1 %; Ovalocytes 1+; Polychromasia 1+
[2024-10-25] MEDS: POTASSIUM CHLORIDE / WTR 10 MEQ/100 ML PLCT IV SCH (08:41)
--- NOTE | 2024-10-25 09:44 | Communication Note ---
Date of Service: October 25, 2024 Unfortunately neutropenia persists. EGD w/ PEG cancelled. Will attempt 10/28/24 pending review of his labs. We will need his thrombocytopenia and neutr openia to resolve prior to PEG placement. Will defer dietary/nutritional plan today and over the weekend to primary team. Mr. Moser does report he is willing to re-attempt some oral intake but has persistent odynophagia I personally saw and examined the patient. I have reviewed the chart and agree with the documentation provided by the DIE ATTACHING MACHINE TENDER including discussion about the assessment, treatment and plan. Briefly, plan unfortunately has been pushed to do PEG on Monday with Dr. Cao. Is still neutropenic and his platelets are still quite low. We will use vancomycin given his MRSA colonization preoperatively and proceed with PEG on Monday
[2024-10-25] MEDS: ONDANSETRON INJ 2 MG/ML 2 ML VIAL IV PRN (13:35)
--- NOTE | 2024-10-25 16:40 | Hospitalist Progress Note ---
Date of Service October 25, 2024 Assessment & Plan (1) Dysphagia: (2) Malignant neoplasm of base of tongue: (3) Pancytopenia: Plan #Dysphagia: - difficulty swallowing for the past 4 weeks - weight loss of 20 pounds (Severe and acute protein calorie malnutrition) - no globus sensation or pain with swallowing - GI consultedPEG once lab work allows for it #Tongue cancer: - in the middle of radiation and has completed 3 chemotherapy treatments out of a planned 6 - previous two chemotherapy treatments held due to feeling poorly #Pancytopenia: - chemo relatedanticipate improvement #pneumonia vs. atelectasis: -Strongly suspect atelectasis. He had been started on empiric cefepime due to the question of pneumonia and his neutropenia. That said, despite his immunocompromise he does not look toxic, has not had fevers, does not have shortness of breath. I suspect his mucus is upper airway from his cancer. Corroborating this, he was initially started on cefepime, and his sputum culture grew MRSAwhich obviously cefepime would not cover. With that in mind, had he actually had a MRSA pneumonia, I would anticipate him worseningunfortunately from an infection standpoint he does not appear at all ill - we will stop cefepime and follow clinically. Check CRP in the morning for baseline to establish a frame of reference for comparison should the clinical situation get at all confusing. #Hyperlipidemia: - holding rosuvastatin pending PEG placement Dispo: med/surg Diet: liquid diet as tolerated until PEG can be placed Code Status: full code DVT PPx: SCDs Admission and Anticipated Discharge Date Admission Date: October 23, 2024 Subjective feeling okay. No new complaints. Frustrated but understanding of the fact that PEG placement will need to be delayed until white count and platelets are appropriate. No shortness of breath or chest pain. Still has cough and mucus Review of Systems Review of Systems: All systems reviewed & are unremarkable except as noted in HPI & below Physical Exam Physical Exam: In general he is awake and alert pleasant no distress. HEENT normocephalic atraumatic mucous membranes moist. Breathing unlabored no accessory muscle use good effort. Skin without rashes pallor or icterus. Neuro without focal deficits. Results & Data Results & Data Vital Signs (Past 12 Hours) Vital Signs Temp Pulse Pulse Resp BP Pulse Ox O2 Del Method 10/25/24 15:04 98.2 F 73 16 111/72 96 Room Air 10/25/24 11:20 97.9 F 75 18 114/73 98 Room Air 10/25/24 07:40 Room Air 10/25/24 07:16 98.2 F 76 16 99/65 L 97 Room Air PG Care Time/CCT Total # of Minutes Spent Total Time Spent with Patient: Total time spent is greater than 50% in coordination of care (as documented) at patient's floor/unit and/or counseling patient: Coding Level of Care Code 72572 SUB INP/OBS CARE 3/50MIN Diagnoses Dysphagia R13.10 Malignant neoplasm of base of tongue C01 Pancytopenia D61.818
--- NOTE | 2024-10-25 16:40 | Billing Data ---
Date of Service October 25, 2024 Coding Level of Care Code 74056 SUB INP/OBS CARE
[2024-10-26 06:15] LABS: Hemoglobin 8.1 g/dl (14.0-18.0); Mean Corpuscular Hemoglobin 29.6 pg (25.0-34.0); Mean Corpuscular Hgb Conc 33.8 g/dL (32.0-36.0); Mean Corpuscular Volume 87.6 fL (80.0-100.0); Mean Platelet Volume 12.7 fL (9.4-12.4); Platelet Count 50 K/uL (130-400); RDW Coefficient of Variation 14.9 % (11.5-14.5); RDW Standard Deviation 43.1 fL (36.4-46.3); Red Blood Count 2.74 M/uL (4.70-6.10); White Blood Count 1.66 K/ul (4.8-10.8)
[2024-10-26 06:18] LABS: BUN Creatinine Ratio 17.1 (10-20); C Reactive Protein 1.85 mg/dl (0-0.5); Calcium 8.1 mg/dl (8.6-10.3); Potassium 3.3 mmol/L (3.5-5.1)
[2024-10-26 06:40] LABS: ALC (manual) 0.17 K/uL (1.2-3.4); ANC (manual) 1.03 K/uL (1.4-6.5); Basophils # (manual) 0.03 K/uL (0-0.2); Basophils % (manual) 2 %; Dohle Bodies 1+; Lymphocytes # (manual) 0.17 K/uL (1.2-3.4); Lymphocytes % (manual) 10 %; Metamyelocytes # (manual) 0.03 K/uL (0-0); Metamyelocytes % (manual) 2 %; Monocytes # (manual) 0.33 K/uL (0.11-0.59); Monocytes % (manual) 20 %; Myelocytes # (manual) 0.07 K/uL (0-0); Myelocytes % (manual) 4 %; Neutrophils # (manual) 1.03 K/uL (1.40-6.50); Neutrophils % (manual) 62 %; Polychromasia 1+; Toxic Granulation 1+
--- NOTE | 2024-10-26 06:57 | Hospitalist Progress Note ---
Date of Service October 26, 2024 Assessment & Plan (1) Dysphagia: (2) Malignant neoplasm of base of tongue: (3) Pancytopenia: Plan Dung is a 78M w/ PMH of malignant neoplasm of th etongue, prostate cancer, arthritis, BPH w/ LUTS, hypercholesterolemia, and kidney disease who presented for difficulty swallowing and weight loss. #Dysphagia: - 4 weeks of difficulty swallowing a/w pain, resulting in 20 lbs of weight loss and severe/acute protein-calorie malnutrition - Recreation Attendant consulted - No globus sensation, but pain ongoing - GI consulted PEG scheduled for Monday Required delay d/t thrombocytopenia/leukopenia #Tongue cancer: - Currently on 3/6 rounds of chemotherapy - Has required hold of prior two sessions d/t feeling poorly #Pancytopenia: - 2/2 chemotherapy, WBC and platelet counts improved #Atelectasis (LLL) - Initial imaging suggestive of atelectasis vs PNA, clinical picture more c/w atelectasis - Patient remains non-toxic, despite no active antibiotics - Has upper airway mucous collection a/w cancer - CRP mildly elevated, would repeat if concern for infectious rises - Continue to follow clinically #Hyperlipidemia: - Holding rosuvastatin pending PEG placement Dispo: med/surg Diet: liquid diet as tolerated until PEG can be placed Code Status: full code DVT PPx: SCDs (d/t thrombocytopenia) Admission and Anticipated Discharge Date Admission Date: October 23, 2024 Supervising Physician Co-Signing Physician Notes I personally examined the patient and verified all pina points of history and exam, discussed case, and agree with decision making with Dr Alanis feeling reasonably ok. no new complaints vitals noted nad heent nc at mmm breathing unlabored no accessory muscles good effort skin no rashes no pallor or icterus severe protein calorie malnutrition - due to tongue cancer. for PEG hopefully monday neutropenia/thrombocytopenia - due to chemotherapy. productive cough - no hypoxia, fever, cp, SOB/BANKS, CXR questionable infiltrate but not overt, lungs clear, but is quite neutropenic - will continue abx for now, serial exams/serial labs but not convinced there's truly a pneumonia, -and looking stable off abx tongue cancer - ongoing XRT/chemo once nutrition situation better remedied DVT proph - pharmacologic contrainidcated due to thrombocytopenia, SCDs ordered Subjective 5/10/35: Patient is feeling well today, no acute concerns. He is still having notable pain with swallowing and doesn't have much desire for PO intake. Patient is dismayed about the delay of his PEG procedure but has a overall positive outlook and good understanding of the procedure/next steps. He denies chest pain or dyspnea. He is not experiencing any nausea or abdominal pain. Denies fevers or chills. Still has a mild cough w/ some mucous production. Physical Exam Physical Exam: Gen: NAD, alert, interactive HEENT: Supple, generalized skin erythema of the neck (no TTP or warmth) Resp:Non-labored, no wheezing/rhonchi/rales, CTAB, somewhat diminished in LLL CV:RRR, normal S1/S2, no M/R/G Abd: Soft, non-distended, no TTP, normoactive bowels, no masses Extr: 2+ dp bilaterally, no edema, strength and sensation intact to LE Skin: No rashes lesions or erythema or lesions Results & Data Results & Data Vital Signs (Past 12 Hours) Vital Signs Temp Pulse Resp BP Pulse Ox O2 Del Method 10/25/24 19:20 Room Air 10/25/24 19:11 36.8 C 75 18 100/63 94 Room Air Resident Activity Tracking Resident Involvement: Resident Care Provided Care Provided: Adult Hospital Medicine
[2024-10-26] MEDS: POTASSIUM CHLORIDE / WTR 10 MEQ/100 ML PLCT IV SCH (08:59)
--- NOTE | 2024-10-26 10:46 | Gastroenterology Progress Note ---
Date of Service October 26, 2024 Assessment & Plan (1) Dysphagia: Plan: Basically has odynophagia can be related to radiation and chemotherapy, progressive and significant weight loss candidate for PEG placement. Risks outlined above. Consider proceeding on Monday based on white count and platelet count. Patient should have coverage for MRSA. Patient is currently on no anticoagulants. (2) Pancytopenia: Plan: Improving white count 1.6 platelets at 50. INR slightly elevated 1.2. Recheck tomorrow. This may be nutritional. (3) Malignant neoplasm of base of tongue: Admission and Anticipated Discharge Date Admission Date: October 23, 2024 Subjective Patient feels well today sitting at the bedside. Still notes pain with swallowing. He is on full liquids. Patient has had significant weight loss of 22+ pounds. Decision made to place PEG to facilitate nutrition while having ongoing therapy. Procedure held on Monday due to leukopenia and thrombocytopenia. This is improving daily. White count currently 1.6 platelets hovering at the crucial 50,000 gricel. Typically want to platelets above 50 to decrease bleeding risk. Recheck CBC tomorrow. Potential PEG placement on Monday Risks of PEG placement reviewed with Mr. Moser these include infection bleeding tumor seeding of the PEG site or intestine or solid organ damage with tube placement. Risks of tumor seeding not an absolute contraindication to PEG placement. Risks may be lowered now as he is already under treatment with radiation and chemo. Physical Exam Physical Exam: Patient appears well and stable. Abdomen shows no surgeries in the left upper quadrant or epigastric area. No organomegaly. Results & Data Results & Data Vital Signs (Past 12 Hours) Vital Signs Temp Pulse Resp BP Pulse Ox O2 Del Method 10/26/24 07:04 36.8 C 76 16 110/67 94 Room Air PG Care Time/CCT Total # of Minutes Spent Total Time Spent with Patient: Total time spent is greater than 50% in coordination of care (as documented) at patient's floor/unit and/or counseling patient: Coding Level of Care Code 70043 SUB INP/OBS CARE 2/35MIN Diagnoses Dysphagia R13.10 Pancytopenia D61.818 Malignant neoplasm of base of tongue C01
--- NOTE | 2024-10-26 17:21 | Billing Data ---
Date of Service October 26, 2024 Coding Level of Care Code 00442 SUB INP/OBS CARE
[2024-10-27 07:00] LABS: Hematocrit (blood only) 23.3 % (42.0-52.0); Hemoglobin 7.7 g/dl (14.0-18.0); Mean Corpuscular Hemoglobin 29.1 pg (25.0-34.0); Mean Corpuscular Volume 87.9 fL (80.0-100.0); Mean Platelet Volume 12.8 fL (9.4-12.4); Platelet Count 52 K/uL (130-400); RDW Coefficient of Variation 14.9 % (11.5-14.5); RDW Standard Deviation 44.1 fL (36.4-46.3); Red Blood Count 2.65 M/uL (4.70-6.10); White Blood Count 1.81 K/ul (4.8-10.8)
--- NOTE | 2024-10-27 07:11 | Hospitalist Progress Note ---
Date of Service October 27, 2024 Assessment & Plan (1) Dysphagia: (2) Malignant neoplasm of base of tongue: (3) Pancytopenia: Plan Dung is a 78M w/ PMH of malignant neoplasm of th etongue, prostate cancer, arthritis, BPH w/ LUTS, hypercholesterolemia, and kidney disease who presented for difficulty swallowing and weight loss. #Dysphagia: - 4 weeks of difficulty swallowing a/w pain, resulting in 20 lbs of weight loss and severe/acute protein-calorie malnutrition - Date Puller consulted - No globus sensation, but pain ongoing - GI consulted PEG planned for Monday Blood counts remain stable #Tongue cancer: - Currently on 3/6 rounds of chemotherapy - Has required hold of prior two sessions d/t feeling poorly #Pancytopenia: - 2/2 chemotherapy, WBC and platelet counts improved #Atelectasis (LLL) - Initial imaging suggestive of atelectasis vs PNA, clinical picture more c/w atelectasis - Patient remains non-toxic, no active antibiotics - Has upper airway mucous collection a/w cancer, upper airways sounds clear w/ cough #Hyperlipidemia: - Holding rosuvastatin pending PEG placement Dispo: med/surg pending PEG placement for dysphagia Diet: liquid diet as tolerated until PEG can be placed Code Status: full code DVT PPx: SCDs (d/t thrombocytopenia) Admission and Anticipated Discharge Date Admission Date: October 23, 2024 Supervising Physician Co-Signing Physician Notes I personally examined the patient and verified all pina points of history and exam, discussed case, and agree with decision making with Dr Alanis feeling reasonably ok. no new complaints. ongoing cough and mucous but no sob. vitals noted nad heent nc at mmm breathing unlabored no accessory muscles clear without r/r/w (initially faint rales base L that clear with deep breath) good effort skin no rashes no pallor or icterus severe protein calorie malnutrition - due to tongue cancer. for PEG hopefully tomorrow neutropenia/thrombocytopenia - due to chemotherapy.improving productive cough - no hypoxia, fever, cp, SOB/BANKS, CXR questionable infiltrate but not overt, lungs clear, but is quite neutropenic - will continue abx for now, serial exams/serial labs but not convinced there's truly a pneumonia, -and looking stable off abx tongue cancer - ongoing XRT/chemo once nutrition situation better remedied DVT proph - pharmacologic contrainidicated due to thrombocytopenia, SCDs ordered Subjective 10/27/24: Continues the same. NAEON. Ongoing pain/difficulty swallowing, anticipating PEG placement. Having small sips of PO intake, does note some nausea with this. He denies chest pain or dyspnea. He is not experiencing abdominal pain. Denies fevers or chills. Still has a mild cough w/ some mucous production. Physical Exam Physical Exam: Gen: NAD, alert, pleasant HEENT: Supple, NCAT, no thyromegaly Resp:Non-labored, no wheezing/rhonchi/rales, CTAB, referred upper airway sounds relieved by cough CV:RRR, normal S1/S2, no M/R/G Abd: Soft, non-distended, no TTP, normoactive bowels, no masses Extr: 2+ dp bilaterally, no edema, strength and sensation intact to LE Skin: No rashes lesions or erythema or lesions Results & Data Results & Data Vital Signs (Past 12 Hours) Vital Signs O2 Del Method 10/26/24 19:20 Room Air Resident Activity Tracking Resident Involvement: Resident Care Provided Care Provided: Adult Hospital Medicine
[2024-10-27 07:18] LABS: BUN Creatinine Ratio 11.3 (10-20); Calcium 8.3 mg/dl (8.6-10.3); Potassium 3.2 mmol/L (3.5-5.1)
[2024-10-27 07:47] LABS: INR 1.2 (0.9-1.1); Prothrombin Time 13.2 Seconds (9.0-12.0)
--- NOTE | 2024-10-27 10:14 | Gastroenterology Progress Note ---
Date of Service October 27, 2024 Assessment & Plan (1) Dysphagia: Plan: Persistent continued dysphagia for PEG tube placement. Resolving leukopenia and thrombocytopenia. Should be okay for PEG placement tomorrow. (2) Pancytopenia: (3) Malignant neoplasm of base of tongue: Admission and Anticipated Discharge Date Admission Date: October 23, 2024 Subjective Patient be evaluated for odynophagia dysphagia Continues to have problems with swallowing. History of tongue cancer. Neutropenia and thrombocytopenia related to chemotherapy. Counts are improving. White count 1.8 today without differential platelets above 50 at 52,000. I think the patient can safely proceed with a PEG tomorrow. Will recheck CBC with differential in the a.m. Potential risks as outlined yesterday including infection bleeding tumor seeding and intestinal perforation. Antibiotic coverage. Review of Systems Review of Systems: Currently denies fevers chills chest pain or shortness of breath Physical Exam Physical Exam: Patient sitting up at the bedside without abdominal pain or distress. Results & Data Results & Data Vital Signs (Past 12 Hours) Vital Signs Temp Pulse Resp BP Pulse Ox O2 Del Method 10/27/24 07:27 36.7 C 80 16 124/71 94 Room Air PG Care Time/CCT Total # of Minutes Spent Total Time Spent with Patient: Total time spent is greater than 50% in coordination of care (as documented) at patient's floor/unit and/or counseling patient: Coding Level of Care Code 11316 SUB INP/OBS CARE 07/13MIN Diagnoses Dysphagia R13.10 Pancytopenia D61.818 Malignant neoplasm of base of tongue C01
[2024-10-27] MEDS: POTASSIUM CHLORIDE / WTR 10 MEQ/100 ML PLCT IV SCH (11:27)
[2024-10-27] MEDS: PHYTONADIONE 5 MG TAB PO STA (11:27)
--- NOTE | 2024-10-27 18:21 | Billing Data ---
Date of Service October 27, 2024 Coding Level of Care Code 61381 SUB INP/OBS CARE MIN
--- NOTE | 2024-10-27 18:22 | Billing Data ---
Date of Service October 27, 2024 Coding Level of Care Code 81642 SUB INP/OBS CARE MIN
[2024-10-28 06:12] LABS: Hematocrit (blood only) 25.4 % (42.0-52.0); Hemoglobin 8.5 g/dl (14.0-18.0); Mean Corpuscular Hemoglobin 29.6 pg (25.0-34.0); Mean Corpuscular Hgb Conc 33.5 g/dL (32.0-36.0); Mean Corpuscular Volume 88.5 fL (80.0-100.0); Mean Platelet Volume 12.4 fL (9.4-12.4); Platelet Count 65 K/uL (130-400); RDW Standard Deviation 43.9 fL (36.4-46.3); Red Blood Count 2.87 M/uL (4.70-6.10); White Blood Count 2.73 K/ul (4.8-10.8)
[2024-10-28 06:35] LABS: INR 1.1 (0.9-1.1); Prothrombin Time 12.1 Seconds (9.0-12.0)
[2024-10-28 06:55] LABS: BUN Creatinine Ratio 9.1 (10-20); Calcium 8.3 mg/dl (8.6-10.3); Creatinine Clr Calc Pharmacy 96.8 ml/min; Potassium 3.4 mmol/L (3.5-5.1)
--- NOTE | 2024-10-28 07:18 | Hospitalist Progress Note ---
Date of Service October 28, 2024 Assessment & Plan (1) Dysphagia: (2) Malignant neoplasm of base of tongue: (3) Pancytopenia: Plan Dung is a 78M w/ PMHx of malignant neoplasm of the tongue, prostate cancer, arthritis, BPH w/ LUTS, hypercholesterolemia, and kidney disease who presented for difficulty swallowing and weight loss. 1) Dysphagia: - 4 weeks of difficulty swallowing a/w pain, resulting in > 20 lbs of weight loss and severe/acute protein-calorie malnutrition - Needlemaker consulted again on 10/28 in anticipation of PEG tube feeds - No globus sensation, but pain ongoing - GI consulted PEG planned for Monday previous diarrhea w/ anesthesia; Metamucil, 4g, PO, qAM ordered per request of pt 2) Tongue cancer: - Currently on 3/6 rounds of chemotherapy - Has required hold of prior two sessions d/t feeling poorly 3) Pancytopenia: - 2/2 chemotherapy, WBC and platelet counts improved - WBC, 0.79 --> 2.73; Plts, 31 --> 65; Hgb, 10.3 --> 8.5 4) Atelectasis (LLL) - Initial imaging suggestive of atelectasis vs PNA, clinical picture more c/w atelectasis - Patient remains non-toxic, no active antibiotics - Has upper airway mucous collection a/w cancer, upper airways sounds clear w/ cough - encourage use of incentive spirometer 5) Hyperlipidemia: - Holding rosuvastatin pending PEG placement Dispo: med/surg pending PEG placement for dysphagia Diet: liquid diet as tolerated until PEG can be placed Code Status: full code DVT PPx: SCDs (d/t thrombocytopenia) Admission and Anticipated Discharge Date Admission Date: October 23, 2024 Supervising Physician Co-Signing Physician Notes I personally examined the patient and verified pina points of history and exam, discussed case, and agree with decision making and plan documented by Dr. Sow. Successful PEG placement with EGD today. Phuong-Regalado tear noted and clipped during EGD. Will monitor patient overnight and ensure hemodynamically stable prior to discharge. Nutrition evaluated patient and made recommendations for initiation of PEG feeds. Subjective Patient seen and evaluated at bedside this morning. Few concerns but notes increased chapped lips and previous diarrhea d/t anesthesia during prior stays. Ongoing pain/difficulty swallowing, anticipating PEG placement. Tolerating small sips of PO intake, does note some nausea with this. Still has a mild cough w/ some mucous/sputum production. He denies chest pain, palpitations, dyspnea, or abdominal pain. Also denied fevers or chills. Review of Systems Constitutional: + weight loss (down at least 23 lbs); no fever, no chills, no body aches and no fatigue Respiratory: + cough and + sputum production Cardiovascular: no chest pain and no palpitations Gastrointestinal: no abdominal pain, no nausea, no vomiting, no constipation and no diarrhea/loose stools pt notes diarrhea typically after anesthesia Neurologic: no tingling, no numbness, no dizziness and no headache(s) Physical Exam Constitutional: WD/WN, vitals as above ENMT: erythematous uvula Respiratory: normal respiratory effort, lungs clear to auscultation Cardiovascular: RRR, no murmur, no edema Gastrointestinal (Abdomen): normal bowel sounds, soft, nontender, no hepatosplenomegaly Psychiatric: A+Ox3, euthymic affect Results & Data Results & Data Vital Signs (Past 12 Hours) Vital Signs Temp Pulse Resp BP Pulse Ox O2 Del Method 10/28/24 07:05 36.5 C 79 16 119/80 95 Room Air 10/27/24 20:33 36.8 C 74 18 122/69 95 Room Air 10/27/24 20:00 Room Air
[2024-10-28 07:29] LABS: ALC (manual) 0.52 K/uL (1.2-3.4); ANC (manual) 1.04 K/uL (1.4-6.5); Blast # (manual) 0.05 K/uL (0-0); Blast Cells % (manual) 2 %; Eosinophils # (manual) 0.03 K/uL (0-0.50); Eosinophils % (manual) 1 %; Lymphocytes # (manual) 0.52 K/uL (1.2-3.4); Lymphocytes % (manual) 19 %; Metamyelocytes # (manual) 0.11 K/uL (0-0); Metamyelocytes % (manual) 4 %; Monocytes # (manual) 0.85 K/uL (0.11-0.59); Monocytes % (manual) 31 %; Myelocytes # (manual) 0.11 K/uL (0-0); Myelocytes % (manual) 4 %; Neutrophils # (manual) 1.04 K/uL (1.40-6.50); Neutrophils % (manual) 38 %; Ovalocytes 1+; Polychromasia 1+; Promyelocytes # (manual) 0.03 K/uL (0-0); Promyelocytes % (manual) 1 %
--- NOTE | 2024-10-28 11:09 | History & Physical Bridge Note ---
Date of Service October 28, 2024 History & Physical Bridge Note I have examined the patient, reviewed the History & Physical and in the interval since the performance of the History & Physical I have noted the following changes of clinical significance: no changes noted. Patient feels well from a GI standpoint outside of difficulty with swallowing. he has been NPO. no sob or chest pain. Will plan for EGD with peg placement for today.
[2024-10-28] MEDS: VANCOMYCIN HCL 1,000 MG/270 ML BAG IV SCH (12:49)
--- NOTE | 2024-10-28 15:29 | Gastroenterology Progress Note ---
Date of Service October 28, 2024 Assessment & Plan (1) Dysphagia: (2) Pancytopenia: Admission and Anticipated Discharge Date Admission Date: October 23, 2024 Subjective For PEG today. Platelets now 60,000. Leukopenia resolving. He has received preoperative antibiotics with MRSA coverage. Proceed with PEG placement today. Results & Data Results & Data Vital Signs (Past 12 Hours) Vital Signs Temp Pulse Pulse Resp BP Pulse Ox O2 Del Method 10/28/24 11:59 36.9 C 75 20 143/80 H 98 Room Air 10/28/24 08:00 Room Air 10/28/24 07:05 36.5 C 79 16 119/80 95 Room Air PG Care Time/CCT Total # of Minutes Spent Total Time Spent with Patient: Total time spent is greater than 50% in coordination of care (as documented) at patient's floor/unit and/or counseling patient: Coding Level of Care Code None Diagnoses Dysphagia R13.10 Pancytopenia D61.818
[2024-10-28] MEDS: ceFAZolin 2000MG 2,000 MG/15 ML SYR IV ONE (15:30)
--- NOTE | 2024-10-28 15:40 | Anesthesiology Consultation ---
Date of Service October 28, 2024 Assessment & Plan (1) Malignant neoplasm of base of tongue: (2) Dysphagia: (3) Pancytopenia: (4) Prostate cancer: (5) Elevated prostate specific antigen (PSA): (6) History of biopsy: (7) Status post biopsy of kidney: (8) H/O excision of hemangioma: (9) History of colonoscopy: (10) Hypercholesterolemia: (11) Kidney disease: Chart Review Chart Review: Acceptable Risk for Surgery Consults Requested none ASA ASA3 Proposed Anesthesia Anesthesia Type: MAC Risk / Benefits Reviewed With: PT / POA / Parent / Guardian, Accepts Plan and Informed Consent Obtained History Surgery Operation Date: 10/28/24 16:30 Proposed Procedures p Esophagogastroduodenoscopy with Gastric Tube Placement Dr. Nash Cao MD Height/Weight Height: 5 ft 7 in Weight: 86.3 kg Allergies Allergy/AdvReac Type Severity Reaction Status Date / Time grass pollen Allergy Congested Verified 10/28/24 15:23 house dust Allergy Congested Verified 10/28/24 15:23 tree and shrub pollen Allergy Congested Verified 10/28/24 15:23 weed pollen Allergy Congested Verified 10/28/24 15:23 Medications Home Medications Medication Instructions Recorded Confirmed Last Taken cholecalciferol (vitamin D3) 50 2,000 units PO DAILY 01/09/19 10/23/24 Unknown mcg (2,000 unit) capsule acetaminophen 325 mg tablet 650 mg PO HS 04/18/23 10/23/24 Unknown fluticasone propionate 50 1 spray intranasal DAILY PRN 04/18/23 10/23/24 Unknown mcg/actuation nasal allergies spray,suspension abiraterone 500 mg tablet (Zytiga) 1,000 mg PO UD 07/17/23 10/23/24 Unknown prednisone 5 mg tablet 5 mg PO UD 07/17/23 10/23/24 Unknown lisinopril 5 mg tablet 5 mg PO DAILY 08/14/23 10/23/24 Unknown coenzyme Q10 100 mg tablet 200 mg PO DAILY 04/22/24 10/23/24 Unknown psyllium husk 3.4 gram/5.4 gram 1 tbsp PO DAILY 04/22/24 10/23/24 Unknown oral powder ferrous sulfate 325 mg (65 mg 325 mg PO DAILY 06/06/24 10/23/24 Unknown iron) tablet (FeroSul) rosuvastatin 20 mg tablet 20 mg PO .MonFri 06/06/24 10/23/24 Unknown vitamin E (dl, acetate) 180 mg 180 mg PO DAILY 06/06/24 10/23/24 Unknown (400 unit) capsule leuprolide (3 month) 22.5 mg (3 22.5 mg subcut ONCE Prostate 08/14/24 10/23/24 Unknown month) subcutaneous syringe Cancer [facility] calcium 600 mg (as carbonate)-vit 1 tab PO DAILY 09/04/24 10/23/24 Unknown D3 10 mcg (400 unit) chewable tablet (Calcium 600 with Vitamin D3) mecobalamin (vitamin B12) 5,000 5,000 mcg PO DAILY 09/04/24 10/23/24 Unknown mcg disintegrating tablet loratadine 10 mg tablet 10 mg PO DAILY 09/30/24 10/23/24 Unknown benzonatate 100 mg capsule 100 mg PO BID PRN Cough 10/21/24 10/23/24 Unknown ondansetron 8 mg disintegrating 8 mg PO Q8H PRN nausea and vomiting 10/21/24 10/23/24 Unknown tablet prochlorperazine maleate 10 mg 10 mg PO Q8H PRN n/v 10/21/24 10/23/24 Unknown tablet Magic Mouthwash 300 mL mouthwash 10 ml mucous membrane ACHS PRN 10/22/24 10/23/24 10/23/24 sore throat #300 mL Active Medications Generic Name Dose Route Start Last Admin Trade Name Freq PRN Reason Stop Dose Admin Dextrose/Lactated Ringer's 1,000 mls @ 125 mls/hr 10/23/24 17:48 10/28/24 15:12 D5w And Lactated Ringers IV 10/28/24 17:47 0 mls/hr .Q8H DIO Infusion Vancomycin HCl 1,000 mg in 270 mls @ 200 mls/hr 10/28/24 13:00 10/28/24 14:10 Vancomycin Hcl IV 10/28/24 18:00 Infused PREOP DIO Infusion Protocol Ondansetron HCl 4 mg 10/25/24 12:04 10/26/24 16:53 Ondansetron Inj 2 Mg/Ml 2 Ml Vial IV 11/24/24 12:03 4 mg Q6H PRN Administration Nausea And Vomiting NPO Date Last Intake of Fluids: 10/27/24 Time Last Intake of Fluids: 18:00 Last Intake of Fluids Comment: sip to take pill Date Last Intake of Solids: 10/18/24 Time Last Intake of Solids: 18:00 Past Medical History Medical History (Updated 10/28/24 @ 15:38 by Mary Ann Riley DO) Tobacco user Seborrheic keratoses (05/25/21) Seasonal allergies Inflamed seborrheic keratosis HTN (hypertension) Hemangioma (12/02/20) Body mass index [BMI] 33.0-33.9, adult (08/27/21) 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 able to speak in full sentences wo sob last chemo 3 wk ago per pt Exercise / Class Metabolic Activity II 4-5 Yardwork/Stairs/Walk up hill Past Family History Family History Father No problems noted. Mother No problems noted. Past Surgical History Surgical History History of biopsy (07/03/24) FNA Left Neck Status post biopsy of kidney H/O excision of hemangioma History of colonoscopy (2022) Past Anesthesia History No Hx of Anesthesia Complications and No Family Hx of Anesthesia Complications History of PONV No Hx of PONV and No Hx of Motion Sickness Social History Smoking Status: Former smoker Smoking cigarettes per day: infrequent cigar smoking, has been a month or two Do You Dip or Chew Tobacco: No Hx Alcohol Use: No Hx Substance Use: No Physical Exam Vital Signs Last Vital Signs Temp 36.9 C 10/28/24 11:59 Pulse 75 10/28/24 11:59 Resp 20 10/28/24 11:59 BP 143/80 H 10/28/24 11:59 Pulse Ox 98 10/28/24 11:59 O2 Del Method Room Air 10/28/24 11:59 ENMT Mouth: no TMJ abnormality Thyromental Distance: > or= 3.5 Finger Breadths Mallampati Class: II Neck normal visual inspection, trachea midline and + facial hair; neck extension not limited Respiratory normal respiratory effort Auscultation: lungs clear to auscultation bilaterally Cardiovascular Rate/Rhythm: regular rate and regular rhythm Heart Sounds: no murmur Musculoskeletal Spine: normal cervical ROM Extremities: full ROM of extremities Neurologic moves all extremities Psychiatric Orientation: alert and oriented x 3 Testing Laboratory Results 10/28/24 05:43 10/28/24 05:43 PT 12.1 Seconds (9.0-12.0) H 10/28/24 05:43 INR 1.1 (0.9-1.1) 10/28/24 05:43 Blood Type A Positive 10/23/24 16:29 Antibody Screen NEGATIVE 10/23/24 16:29 10/23/24 13:55 Aerobic Blood Culture - Final Blood No growth in Aerobic bottle after 5 days. Anaerobic Blood Culture - Final No growth in Anaerobic bottle after 5 days. 10/23/24 14:09 Aerobic Blood Culture - Final Blood No growth in Aerobic bottle after 5 days. Anaerobic Blood Culture - Final No growth in Anaerobic bottle after 5 days. 10/23/24 18:40 Gram Stain - Final Sputum, Expectorated Sputum Culture - Final Staph aureus MRSA
--- NOTE | 2024-10-28 16:14 | Communication Note ---
Date of Service: October 28, 2024 EGD for PEG placed Distal esophagitis. Mild to moderate distal esophageal stricture. Hiatal hernia scope easily advanced through , bumper caused of the esophageal mucosal tear which was clipped for closure bleeding ceased post. PEG documented in good position between the body and antrum of the stomach. No peptic ulcer disease. Maintain n.p.o. start feeds tomorrow
--- NOTE | 2024-10-28 16:16 | Anesthesiology Progress Note ---
Date of Service October 28, 2024 Anesthesia Post Procedure Vital Signs Vital Signs: Temp Pulse Pulse Resp BP Pulse Ox O2 Del Method 10/28/24 11:59 36.9 C 75 20 143/80 H 98 Room Air 10/28/24 08:00 Room Air 10/28/24 07:05 36.5 C 79 16 119/80 95 Room Air 10/27/24 20:33 36.8 C 74 18 122/69 95 Room Air 10/27/24 20:00 Room Air Pain Intensity Throat: Pain Intensity: 3 Transfer of Care Handoff Completed per policy Notes Mental Status: alert / awake / arousable Patient Amnestic to Procedure: Yes Nausea / Vomiting: adequately controlled Pain: adequately controlled Airway Patency, RR, SpO2: stable & adequate BP & HR: stable & adequate Hydration State: stable & adequate Anesthetic Complications: no major complications apparent and Pt Satisfied with anesthetic care
--- NOTE | 2024-10-28 16:22 | GI REPORT ---
[facility] [address] Patient: ERLINDA JAFFE : 1945 Sex at : Male Age: 78 Years Procedure: Upper GI endoscopy Date: 10/28/2024 Attending Physician: Levon Cao MD Referring MD: Referred Self Indications: - Dysphagia - Tongue cancer dysphagia Medications: - Monitored Anesthesia Care Complications: - SEE ABOVE, Tear Estimated Blood Loss: - Estimated blood loss was minimal. Procedure: - The egd scope was introduced through the mouth and advanced to the second part of the duodenum. - The upper GI endoscopy was accomplished without difficulty. - The patient tolerated the procedure well. Findings: - LA Grade C (one or more mucosal breaks continuous between tops of 2 or more mucosal folds, less than 75% circumference) esophagitis with no bleeding was found at the gastroesophageal junction (on retroflexion). - One benign-appearing, intrinsic moderate (circumferential scarring or stenosis; an endoscope may pass) stenosis was found at the gastroesophageal junction. This stenosis measured 16 mm (inner diameter) x less than one cm (in length). The stenosis was traversed after dilation. - The entire examined stomach was normal. - The examined duodenum was normal. - PEG placement patient rotated onto his back. Area of transillumination was in the left upper quadrant. Palpation here freely transmitted to the gastric lumen. An incision was made in the gastric abdominal wall. Craft Recruiter needle entered the stomach. A Angiocath then was inserted through the gastric wall and a snare was placed around this guidewire then was and snared and pulled antegradely through the oropharynx. 20 English gastrostomy tube was pulled through the oropharynx and esophagus. There was some hold-up at the stricture. PEG was advanced through the abdominal wall and secured to the abdominal wall. Post endoscopy did show a Phuong-Regalado type tear at the GE junction. Patient has low platelets area therefore was clipped multiple occasions. Total of 5 clips placed. Esophageal patency remains. Bleeding ceased post. Phuong-Regalado closed. Patient tolerated well Impression: - PEG placement patient rotated onto his back. Area of transillumination was in the left upper quadrant. Palpation here freely transmitted to the gastric lumen. An incision was made in the gastric abdominal wall. Craft Recruiter needle entered the stomach. A Angiocath then was inserted through the gastric wall and a snare was placed around this guidewire then was and snared and pulled antegradely through the oropharynx. 20 English gastrostomy tube was pulled through the oropharynx and esophagus. There was some hold-up at the stricture. PEG was advanced through the abdominal wall and secured to the abdominal wall. Post endoscopy did show a Phuong-Regalado type tear at the GE junction. Patient has low platelets area therefore was clipped multiple occasions. Total of 5 clips placed. Esophageal patency remains. Bleeding ceased post. Phuong-Regalaod closed. Patient tolerated well - LA Grade C reflux esophagitis with no bleeding. - Benign-appearing esophageal stenosis. - Normal stomach. - Normal examined duodenum. - No specimens collected. - Post PEG placement. Distal esophagitis. Begin PPI hold feeds till tomorrow. Reassess at that time. Maintain NPO. Recommendation: Procedure Code(s): - 87270, Esophagogastroduodenoscopy, flexible, transoral; diagnostic, including collection of specimen(s) by brushing or washing, when performed (separate procedure) Diagnosis Code(s): - R13.10, Dysphagia, unspecified - K21.00, Gastro-esophageal reflux disease with esophagitis, without bleeding - K22.2, Esophageal obstruction - K91.71, Accidental puncture and laceration of a digestive system organ or structure during a digestive system procedure CPT(R) - 2023 copyright [employer]. All Rights Reserved. The CPT codes, CCI edits and ICD codes generated are intended as suggestions and were generated based on input data. These codes are preliminary and upon service station attendant review may be revised to meet current compliance and payer requirements. The provider is responsible for the final determination of appropriate codes, and modifiers. Levon Cao MD This document has been electronically signed. Note Initiated:10/28/2024 Note Completed:10/28/2024 4:21 PM [id number]
[2024-10-28] MEDS: BENZOCAINE/TETRACAIN/BUTAM 50 APPLN/5 GM CAN EXT ONE (17:19)
[2024-10-28] MEDS: MIDAZOLAM HCL 1 MG/ML 2ML VIAL ONE (17:19)
[2024-10-28] MEDS: LIDOCAINE 2% 2 ML VIAL/AMP(20MG/ML) INFIL ONE ×2 (17:19→17:20)
[2024-10-28] MEDS: GLYCOPYRROLATE 0.2 MG/ML VIAL ONE (17:20)
[2024-10-28] MEDS: PROPOFOL IV EMULSION 10 MG/ML 20 ML VIAL IV ONE (17:20)
--- NOTE | 2024-10-28 17:41 | Communication Note ---
Date of Service: October 28, 2024 Follow-up post PEG placement patient lying in bed seems to be well with no acute complaints. Noted a significant belch post procedure, likely from insufflated air. Denies any bleeding hematemesis chest pain shortness of breath With low platelets and disruption of his stricture with PEG placement observe for bleeding. Resume limited p.o. and PEG tube feedings tomorrow.
[2024-10-28] MEDS: PSYLLIUM HUSK 4GM PACKET PO SCH (17:55)
[2024-10-28] MEDS: PANTOprazole 40 MG/10 ML SYR IV SCH (20:18)
--- NOTE | 2024-10-29 07:18 | Hospitalist Progress Note ---
Date of Service October 29, 2024 Assessment & Plan (1) Dysphagia: (2) Malignant neoplasm of base of tongue: (3) Pancytopenia: Plan Dung is a 78M w/ PMHx of malignant neoplasm of the tongue, prostate cancer, arthritis, BPH w/ LUTS, hypercholesterolemia, and kidney disease who presented for difficulty swallowing and weight loss. 1) Dysphagia: - 4 weeks of difficulty swallowing a/w pain, resulting in > 20 lbs of weight loss and severe/acute protein-calorie malnutrition - Manager [employer] consulted again on 10/28 in anticipation of PEG tube feeds - No globus sensation, but pain ongoing - GI consulted PEG tube placed, feeds began today 2) Tongue cancer: - Currently on 3/6 rounds of chemotherapy - Has required hold of prior two sessions d/t feeling poorly 3) Pancytopenia: - 2/2 chemotherapy, WBC and platelet counts improved - WBC, 0.79 --> 2.73; Plts, 31 --> 65; Hgb, 10.3 --> 8.5 4) Atelectasis (base of lungs) - Initial imaging suggestive of atelectasis vs PNA, clinical picture more c/w atelectasis - Patient remains non-toxic, no active antibiotics - Has upper airway mucous collection a/w cancer, upper airways sounds clear w/ cough - encourage use of incentive spirometer 5) Diarrhea previous diarrhea w/ anesthesia; Metamucil, 4g, PO, qAM ordered per request of pt; Pepto-Bismol, 30 mL, PO, TID for diarrhea/nausea 6) Hyperlipidemia: - Holding rosuvastatin pending PEG placement Dispo: med/surg pending PEG placement for dysphagia Diet: liquid diet as tolerated until PEG can be placed Code Status: full code DVT PPx: SCDs (d/t thrombocytopenia) Admission and Anticipated Discharge Date Admission Date: October 23, 2024 Supervising Physician Co-Signing Physician Notes I personally examined the patient and verified pina points of history and exam, discussed case, and agree with decision making and plan documented by Dr. Sow. Successful PEG placement with EGD yesterday with clipped Phuong- Regalado tear. PEG feeds started today, patient tolerating well. Hemoglobin stable. Anticipate discharge back to the [facility] tomorrow. Subjective Patient seen and evaluated at bedside this morning. Main concerns are increased fatigue and weakness after the PEG tube placement yesterday and diarrhea that the pt attributes to anesthesia, along with nausea and vomiting. Ongoing pain/difficulty swallowing. Still has a mild cough w/ some mucous/sputum production. He denies chest pain, palpitations, dyspnea, and only endorses incisional site abdominal pain. Also denied fevers or chills. Review of Systems Constitutional: + weight loss (down at least 23 lbs); no fever, no chills, no body aches and no fatigue Respiratory: + cough and + sputum production Cardiovascular: no chest pain and no palpitations Gastrointestinal: + abdominal pain (around PEG site), + na usea, + vomiting and + diarrhea/loose stools; no constipation pt notes diarrhea typically after anesthesia Neurologic: no tingling, no numbness, no dizziness and no headache(s) Physical Exam Constitutional: WD/WN, vitals as above Respiratory: normal respiratory effort and able to speak in complete sentences; no respiratory distress Auscultation: + crackles (noted at bases of both lungs posteriorly); no wheezes Cardiovascular: RRR, no murmur, no edema Gastrointestinal (Abdomen): Inspection/Auscultation: normal bowel sounds and + abdominal surgical incision; abdomen not distended Percussion/Palpation: + abdomen tender (around PEG site) and abdomen soft Psychiatric: A+Ox3, euthymic affect Results & Data Results & Data Vital Signs (Past 12 Hours) Vital Signs Temp Pulse Resp BP Pulse Ox O2 Del Method 10/29/24 03:00 37.2 C 81 18 128/78 93 Room Air 10/28/24 23:00 37.0 C 90 18 133/75 93 Room Air 10/28/24 20:20 Room Air Resident Activity Tracking Resident Involvement: Resident Care Provided Care Provided: Adult Hospital Medicine (1) Dysphagia Dysphagia type: unspecified Qualified Code(s): R13.10 - Dysphagia, unspecified
--- NOTE | 2024-10-29 08:03 | Gastroenterology Progress Note ---
Date of Service October 29, 2024 Assessment & Plan (1) Cancer of tongue: Plan: Post PEG placement. Can begin use for feeds. And meds. Teach patient management of his tube. We will slightly loosen the external PEG bumper prior to discharge tomorrow (2) Dysphagia: Admission and Anticipated Discharge Date Admission Date: October 23, 2024 Subjective Dysphagia Post PEG placed Patient feels well. Afebrile. No bleeding. Some discomfort over the PEG incision which is normal and typical PEG site looks clean without bleeding. Patient's had some diarrhea nonbloody no melena. Otherwise no issues. Can start tube feeds today. Clear liquids. Oral prior to discharge should have the PEG bumper slightly loosened. Physical Exam Physical Exam: PEG site description as above Results & Data Results & Data Vital Signs (Past 12 Hours) Vital Signs Temp Pulse Resp BP Pulse Ox O2 Del Method 10/29/24 07:25 37.4 C 92 H 18 134/68 91 Room Air 10/29/24 03:00 37.2 C 81 18 128/78 93 Room Air 10/28/24 23:00 37.0 C 90 18 133/75 93 Room Air 10/28/24 20:20 Room Air PG Care Time/CCT Total # of Minutes Spent Total Time Spent with Patient: Total time spent is greater than 50% in coordination of care (as documented) at patient's floor/unit and/or counseling patient: Coding Level of Care Code None Diagnoses Cancer of tongue C02.9 Dysphagia R13.10 Dysphagia type: unspecified (2) Dysphagia Dysphagia type: unspecified Qualified Code(s): R13.10 - Dysphagia, unspecified
[2024-10-29] MEDS: TUBE FEEDING WATER FLUSH PEG SCH (12:19)
[2024-10-29] MEDS: FIBERSOURCE HN 1.2 CAL 1000 ML BAG GT SCH (12:19)
[2024-10-30] MEDS: BISMUTH SUBSALICYLATE SUSP PO PRN (05:23)
[2024-10-30 06:14] LABS: Hematocrit (blood only) 25.9 % (42.0-52.0); Hemoglobin 8.8 g/dl (14.0-18.0); Mean Corpuscular Hemoglobin 29.6 pg (25.0-34.0); Mean Corpuscular Volume 87.2 fL (80.0-100.0); Mean Platelet Volume 12.6 fL (9.4-12.4); Platelet Count 81 K/uL (130-400); RDW Coefficient of Variation 15.8 % (11.5-14.5); RDW Standard Deviation 45.8 fL (36.4-46.3); Red Blood Count 2.97 M/uL (4.70-6.10); White Blood Count 7.85 K/ul (4.8-10.8)
[2024-10-30 06:27] LABS: Calcium 7.8 mg/dl (8.6-10.3); Creatinine Clr Calc Pharmacy 80.9 ml/min
[2024-10-30 07:20] LABS: Bone Marrow Smear SLHOLD
[2024-10-30 07:22] LABS: Basophils # (auto) 0.01 K/uL (0.00-0.20); Basophils % (auto) 0.1 %; Dohle Bodies 1+; Immature Granulocytes # (auto) 0.48 K/uL (0.01-0.20); Immature Granulocytes % (auto) 6.1 %; Lymphocytes # (auto) 0.43 K/uL (1.20-3.40); Lymphocytes % (auto) 5.5 %; Monocytes # (auto) 1.61 K/uL (0.11-0.59); Monocytes % (auto) 20.5 %; Neutrophils # (auto) 5.32 K/uL (1.40-6.50); Neutrophils % (auto) 67.8 %; Toxic Granulation 1+
--- NOTE | 2024-10-30 08:33 | Gastroenterology Progress Note ---
Date of Service October 30, 2024 Assessment & Plan (1) Irregular heart rate: Plan: New, EKG plan and chest x-ray (2) Diarrhea: Plan: Check C. difficile. Could be related to tube feeds though predated per patient institution of his tube feeds Admission and Anticipated Discharge Date Admission Date: October 23, 2024 Subjective Patient examined at the bedside. Appears comfortable. Post PEG placement day 2. Noted elevated heart rate this morning on his vitals. Exam shows an irregular irregular rhythm suggestive of potential A-fib. He notes some expected discomfort at the PEG site. Denies other abdominal pain or chest pain. No melena. Hemoglobin looks stable. White count is normal He is having significant diarrhea. This predated the tube feeds. Though they can be expected with tube feeds we should check him for C. difficile. With A- fib check a EKG and a chest x-ray Can continue tube feeds at this time. Physical Exam Physical Exam: New elevated heart rate regular rhythm Benign abdominal exam, PEG site clean without signs of infection Results & Data Results & Data Vital Signs (Past 12 Hours) Vital Signs Temp Pulse Pulse Resp BP Pulse Ox O2 Del Method 10/30/24 07:22 37.2 C 107 H 20 128/69 94 Room Air 10/29/24 22:00 37.4 C 82 16 125/71 96 Room Air PG Care Time/CCT Total # of Minutes Spent Total Time Spent with Patient: Total time spent is greater than 50% in coordination of care (as documented) at patient's floor/unit and/or counseling patient: Coding Level of Care Code 76786 SUB INP/OBS CARE 07/13MIN Diagnoses Irregular heart rate I49.9 Diarrhea R19.7
--- NOTE | 2024-10-30 08:53 | Hospitalist Progress Note ---
Date of Service October 30, 2024 Assessment & Plan (1) Dysphagia: (2) Malignant neoplasm of base of tongue: (3) Pancytopenia: Plan Dung is a 78M w/ PMHx of malignant neoplasm of the tongue, prostate cancer, arthritis, BPH w/ LUTS, hypercholesterolemia, and kidney disease who presented for difficulty swallowing and weight loss. 1) Dysphagia: - 4 weeks of difficulty swallowing a/w pain, resulting in > 20 lbs of weight loss and severe/acute protein-calorie malnutrition - Office Engineer consulted again on 10/28 in anticipation of PEG tube feeds - No globus sensation, but pain ongoing - GI consulted PEG tube placed, feeds began today 2) Tongue cancer: - Currently on 3/6 rounds of chemotherapy - Has required hold of prior two sessions d/t feeling poorly 3) Pancytopenia: - 2/2 chemotherapy, WBC and platelet counts improved - WBC, 0.79 --> 2.73; Plts, 31 --> 65; Hgb, 10.3 --> 8.5 4) Atelectasis (base of lungs) - Initial imaging suggestive of atelectasis vs PNA, clinical picture more c/w atelectasis - Patient remains non-toxic, no active antibiotics - Has upper airway mucous collection a/w cancer, upper airways sounds clear w/ cough - encourage use of incentive spirometer 5) Diarrhea previous diarrhea w/ anesthesia; Metamucil, 4g, PO, qAM ordered per request of pt; Pepto-Bismol, 30 mL, PO, TID for diarrhea/nausea 6) Hyperlipidemia: - Holding rosuvastatin pending PEG placement Dispo: med/surg pending PEG placement for dysphagia Diet: liquid diet as tolerated until PEG can be placed Code Status: full code DVT PPx: SCDs (d/t thrombocytopenia) Admission and Anticipated Discharge Date Admission Date: October 23, 2024 Subjective Patient examined at the bedside. Appears comfortable. Post PEG placement day 2. Noted elevated heart rate this morning on his vitals. Exam shows an irregular irregular rhythm suggestive of potential A-fib. He notes some expected discomfort at the PEG site. Denies other abdominal pain or chest pain. No melena. Hemoglobin looks stable. White count is normal He is having significant diarrhea. This predated the tube feeds. Though they can be expected with tube feeds we should check him for C. difficile. With A- fib check a EKG and a chest x-ray Can continue tube feeds at this time. Review of Systems Constitutional: + weight loss (down at least 23 lbs); no fever, no chills, no body aches and no fatigue Respiratory: + cough and + sputum production Cardiovascular: no chest pain and no palpitations Gastrointestinal: + abdominal pain (around PEG site), + na usea, + vomiting and + diarrhea/loose stools; no constipation pt notes diarrhea typically after anesthesia Neurologic: no tingling, no numbness, no dizziness and no headache(s) Physical Exam Constitutional: WD/WN, vitals as above Respiratory: normal respiratory effort, lungs clear to auscultation normal respiratory effort and able to speak in complete sentences; no respiratory distress Auscultation: + crackles (noted at bases of both lungs posteriorly); no wheezes Cardiovascular: RRR, no murmur, no edema Gastrointestinal (Abdomen): normal bowel sounds, soft, nontender, no hepatosplenomegaly Inspection/Auscultation: normal bowel sounds and + abdominal surgical incision; abdomen not distended Percussion/Palpation: + abdomen tender (around PEG site) and abdomen soft Psychiatric: A+Ox3, euthymic affect Results & Data Results & Data Vital Signs (Past 12 Hours) Vital Signs Temp Pulse Pulse Resp BP Pulse Ox O2 Del Method 10/30/24 07:22 37.2 C 107 H 20 128/69 94 Room Air 10/29/24 22:00 37.4 C 82 16 125/71 96 Room Air (1) Dysphagia Dysphagia type: unspecified Qualified Code(s): R13.10 - Dysphagia, unspecified
--- NOTE | 2024-10-30 10:42 | XRay Report ---
XR abdomen 2V w PA chest CLINICAL HISTORY: Post PEG placement, diarrhea and atrial fibrillati COMPARISON STUDY: Chest x-ray 10/23/2024 FINDINGS: PA erect chest demonstrates progressive atelectasis and/or pneumonia in the left lung base with a small left pleural effusion. 2 views of the abdomen demonstrate a PEG tube in the left upper quadrant. The bowel gas pattern is no nspecific. There is no free air identified. There is lumbar scoliosis with multilevel degenerative ch safia. IMPRESSION: Progressive left basilar infiltrate and/or compressive atelectasis in association with a small left pleural effusion. PEG tube placement nonspecific. No evidence of bowel obstruction or free air. ACT 112: Negative or not required by law. Electronically signed by: China Sherman M.D. 10/30/2024 10:40 AM
[2024-10-30] MEDS: POTASSIUM CHLORIDE / WTR 10 MEQ/100 ML PLCT IV SCH (10:48)
[2024-10-30 13:07] LABS: Cdiff Antigen Positive; Cdiff Toxin B Gene (2yr or >) Positive Cdiff Gene (Neg)
[2024-10-30 13:09] LABS: Cdiff Toxin A+B Positive Cdiff Toxin (Negative)
--- NOTE | 2024-10-30 14:16 | Electrocardiogram Report ---
Test Reason : Blood Pressure : */* mmHG Vent. Rate : 100 BPM Atrial Rate : 100 BPM P-R Int : 124 ms QRS Dur : 98 ms QT Int : 360 ms P-R-T Axes : 42 -2 40 degrees QTcB Int : 464 ms Normal sinus rhythm Nonspecific ST abnormality Abnormal ECG When compared with ECG of 23-Oct-2024 12:52, Premature atrial complexes are no longer Present Nonspecific T wave abnormality now evident in Lateral leads Confirmed by Chaka Hardy ([id number]) on 10/30/2024 2:16:50 PM Referred By: REFERRED SELF Confirmed By: Chaka Hardy
--- NOTE | 2024-10-30 15:37 | Discharge Summary ---
Date of Service October 30, 2024 Admission HPI Per Admitting Provider Mr. 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 [address] Dr[address] Moreno so far for tongue cancer Is supposed to have 6 chemo treatments, 4th last week was cancelled and this weeks was cancelled due to feeling poorly and neutropenia Dung reports he has a lot of mucous drainage x3 weeks. He has had a chronic cough over that time and bringing up clear mucous. No fevers/chills/sweats. No dyspnea. Swallowing has been poor/getting worse x2-3 weeks, and seems much worse since radiation. Has been trying to drink ensure, but has trouble even getting small sips down. Does get nausea which is improved with zofran. Feels his inability to swallow is separate from his nause, and just cannot swallow. When he is able to get a small amount of liquid down he quickly coughs and brings up mucous. Has lost 24lbs (180.2lbs this morning, beginning of September.9lbs) in the last 4 weeks due to not being able to eat. Was told he might need a PEG which he would like if indicated. Urine output has decreased, but still voiding twice daily and urine is noticably dark last few days. No dysuria. No abdominal pain No globus sensation in the through NO chest pain, no chest pressure No history of MD no history of CVA No history of DM Has not been able to any meds for last few days due to inability to swallow Medical History: Reviewed Medications: Reviewed Surgical History: Reviewed Family history: Reviewed Allergies: Reviewed Social History: No tobacco/ETOH use Code Status: Full Admission Exam Per Admitting Provider Physical Exam: General: A&Ox3. NAD. Cooperative. HEENT: Atraumatic, normocephalic. Pulm: CTAB A&P. -wheezes, -rales, -rhonchi. Symmetrical chest rise. No increased work of breathing. No respiratory distress. Cardiac: RRR, -mrg. Radial pulses intact and symmetrical. Abdominal: Nontender, nondistended, soft. BS present. +numerous ochoa angiomas. Ext: warm, dry Principal Diagnosis dysphagia, s/p PEG Discharge Exam Constitutional WD/WN, vitals as above Respiratory normal respiratory effort, lungs clear to auscultation normal respiratory effort and able to speak in complete sentences; no respiratory distress Auscultation: + crackles (noted at bases of both lungs posteriorly); no wheezes Cardiovascular RRR, no murmur, no edema Gastrointestinal (Abdomen) normal bowel sounds, soft, nontender, no hepatosplenomegaly Inspection/Auscultation: normal bowel sounds and + abdominal surgical incision; abdomen not distended Percussion/Palpation: + abdomen tender (around PEG site) and abdomen soft Psychiatric A+Ox3, euthymic affect Discharge Data Allergies Allergy/AdvReac Type Severity Reaction Status Date / Time grass pollen Allergy Congested Verified 10/28/24 15:23 house dust Allergy Congested Verified 10/28/24 15:23 tree and shrub pollen Allergy Congested Verified 10/28/24 15:23 weed pollen Allergy Congested Verified 10/28/24 15:23 Consultations 10/23/24 14:24 ED Decision to Admit Stat 10/23/24 16:14 Consult Gastroenterology Routine Procedures Performed Operation Date: 10/28/24 16:30 Actual Procedures p EGD Gastric Tube Placement - Levon Cao MD Hospital Course (1) Dysphagia: (2) Malignant neoplasm of base of tongue: (3) Pancytopenia: Plan Dung is a 78M w/ PMHx of malignant neoplasm of the tongue, prostate cancer, arthritis, BPH w/ LUTS, hypercholesterolemia, and kidney disease who presented for difficulty swallowing and weight loss. 1) Dysphagia: - 4 weeks of difficulty swallowing a/w pain, resulting in > 20 lbs of weight loss and severe/acute protein-calorie malnutrition - Film Rental Clerk consulted again on 10/28 in anticipation of PEG tube feeds - No globus sensation, but pain ongoing - GI consulted, PEG tube placed PEG tube placed, continue feeds as outpt: - Pt would need a goal rate of 70 mL/hr. PureWRXource HN (or equivalent product Jevity 1.2) with a goal of 70 mL/hr will be providing Pt with ~ 2015 Kcals, ~ 90 g protein, ~ 260 g CHO, and ~ 1350 mL of free water, each day. Pt would need additional free water flushes of 150 mL every 4 hours, for an additional 900 mL or a daily total of ~ 2250 mL; will adjust as needed. - If facility prefers to transition pt to bolus feedings, in the future, Nutren 2.0: 250 mL boluses, QID, could also be an option for Pt, by providing Pt with ~ 2000 Kcals and ~ 85 g protein, each day. 2) Tongue cancer: - Currently on 3/6 rounds of chemotherapy - Has required hold of prior two sessions d/t feeling poorly - Patient declined to have any radiation therapy performed over the last 3 days d/t fatigue, diarrhea - Patient planning to resume radiation therapy as outpatient through the [facility] 3) C. Diff Infection/Diarrhea Metamucil, 4g, PO, qAM ordered per request of pt; Pepto-Bismol, 30 mL, PO, TID for diarrhea/nausea - C. Diff stool panel, +C.Diff gene, +C.Diff Toxin gene - sent in Rx for vancomycin, PO, 125 mg, q6hr, for 10 days (50 mg/mL suspension as patient unable to swallow pills at this time) as outpt 4) Pancytopenia: - d/t chemotherapy, WBC, Hgb, and platelet counts improved throughout hospital stay - WBC, 0.79 --> 7.85; Plts, 31 --> 81; Hgb, 10.3 --> 8.8 - continue to monitor w/ periodic CBCs, through [facility] 5) Atelectasis (base of lungs) - Initial imaging suggestive of atelectasis vs PNA, clinical picture more c/w atelectasis - Patient remains non-toxic, no active antibiotics - Has upper airway mucous collection a/w cancer, upper airways sounds clear w/ cough - encourage use of incentive spirometer upon discharge to ensure lungs are re- inflated after anesthesia for PEG placement 6) Hyperlipidemia: - Holding rosuvastatin pending PEG placement Total Time Total Time Spent Total Time Spent (In Minutes): see attending attestation Discharge Plan Discharge Items Patient Disposition: Transfer Group Home Fac Reason For Visit: DYSPHAGIA, PEG PLACEMENT Discharge Diagnosis: s/p PEG Condition on Discharge: Good Activity: Resume your previous activity Non-emergency contact: Primary Care Provider and Flight Hostess Call non-emergency contact if: you have any medication questions Follow-up/Referrals: Jose Guerra MD [Primary Care Provider] - Diet: Other - See Diet Comment Addtl Attending Provider Instructions: You were admitted to the hospital for dysphagia in the context of current tongue cancer and s/p radiation treatments, while still getting radiation treatments. You were treated with A discharge summary will be sent to your primary care physician to ensure continuity of care. Please bring this discharge summary with you to your next office appointment so that your provider can review it at that time. Follow-up appointments: We have requested a follow-up appointment with your primary care physician within one week of discharge. Please call their office if you do not hear from them. Keep all your follow-up appointments as already scheduled. If you cannot make an appointment, notify your provider. Medications: Your medication list has been reviewed and reconciled upon discharge to ensure a ccuracy and continuity of care. An updated list of all your medications is included with your hospital discharge paperwork. Please review this list closely, and make note of any changes. We sent a new medication called vancomycin to your pharmacy. Take vancomycin, 125 mg or 2.5 mL (50 mg/mL solution), every 6 hours, for 10 days. Tube Feeds: - Pt would need a goal rate of 70 mL/hr. Fibersource HN (or equivalent product Jevity 1.2) with a goal of 70 mL/hr will be providing Pt with ~ 2015 Kcals, ~ 90 g protein, ~ 260 g CHO, and ~ 1350 mL of free water, each day. Pt would need additional free water flushes of 150 mL every 4 hours, for an additional 900 mL or a daily total of ~ 2250 mL; will adjust as needed. - If facility prefers to transition pt to bolus feedings, in the future, Nutren 2.0: 250 mL boluses, QID, could also be an option for Pt, by providing Pt with ~ 2000 Kcals and ~ 85 g protein, each day. Take your medications as instructed; do not skip a dose of your medicines. Make sure all of your doctors know every medicine you are taking (including umjh-ckp-ouuolqa medicines, vitamins, and supplements). Call your primary care provider before taking any new medicines (including hkhu-wsz-gmuctca medicines, vitamins, and supplements), because some of these may interact with your current medications, or may make your symptoms worse. Tell your primary care provider if you cannot afford your medications. CONTACT YOUR PRIMARY CARE PROVIDER if you experience any of the following: dysphagia, odynophagia, nausea, vomiting diarrhea, fevers, chills Difficulty following your treatment plan, or difficulty taking medications CALL 911 OR GO TO THE EMERGENCY DEPARTMENT if you experience any of the following: Sudden, severe abdominal pain or nausea/vomiting Severe chest pain, or chest pain that radiates (moves) to your jaw or arm Sudden, severe shortness of breath or difficulty breathing Thank you for allowing us to participate in your care Pending Studies at Discharge: Yes Studies:: C. diff stool panel pending Stand-Alone Forms: My [facility] Skilled Items Patient informed of condition?: Yes DNR: No Discharge Level of Care: Skilled Communicable Disease: No Discharge Prognosis: Stable Lines: None Urinary Catheter: No Medications and DC Order Prescriptions: New vancomycin 50 mg/mL recon soln 125 mg PO Q6H 10 Days Qty: 100 0RF Rx Instructions: Patient with odynophagia and dysphagia secondary to radiation Tx for tongue cancer. Needs the suspension instead of the capsule. Continued ferrous sulfate [FeroSul] 325 mg (65 mg iron) tablet 325 mg PO DAILY vitamin E (dl, acetate) 180 mg (400 unit) capsule 180 mg PO DAILY acetaminophen 325 mg tablet 650 mg PO HS rosuvastatin 20 mg tablet 20 mg PO . Patient Comments: Patient takes medication Monday and Monday abiraterone [Zytiga] 500 mg tablet 1,000 mg PO UD Rx Instructions: 1000 mh po daily. Per pt med is on hold while he has current treatment prednisone 5 mg tablet 5 mg PO UD Rx Instructions: 5 mg po daily. Per pt med is on hold while he has current treatment mecobalamin (vitamin B12) 5,000 mcg tablet,disintegrating 5,000 mcg PO DAILY Eligard (3 month) 22.5 mg syringe 22.5 mg subcut ONCE Qty: 1 0RF Rx Instructions: ICD: C61 Patient scheduled 09/05/23 Calcium 600 with Vitamin D3 600 mg-10 mcg (400 unit) tablet,chewable 1 tab PO DAILY loratadine 10 mg tablet 10 mg PO DAILY ondansetron 8 mg tablet,disintegrating 8 mg PO Q8H PRN (Reason: nausea and vomiting) prochlorperazine maleate 10 mg tablet 10 mg PO Q8H PRN (Reason: n/v) benzonatate 100 mg capsule 100 mg PO BID PRN (Reason: Cough) Magic Mouthwash 300 mL mouthwash 10 ml mucous membrane ACHS PRN (Reason: sore throat) Qty: 300 5RF Rx Instructions: per pt he feels like medication didnt help with pain when he took a dose this morning 10/23 cholecalciferol (vitamin D3) 2,000 unit capsule 2,000 units PO DAILY fluticasone propionate 50 mcg/actuation spray,suspension 1 spray intranasal DAILY PRN (Reason: allergies) lisinopril 5 mg tablet 5 mg PO DAILY coenzyme Q10 100 mg tablet 200 mg PO DAILY psyllium husk 3.4 gram/5.4 gram powder 1 tbsp PO DAILY Discharge Orders: Discharge Order (Routine); Ordered 10/30/24 Ordered By: Chaka Sow Admission Data Admit Date/Time: 10/23/24 16:10 Attending Provider: Yeny Watts Admit Provider: Marcel Ramos Primary Care Provider: Jose Guerra Other Providers: Marcel Ramos; Jagjit Case; Carlos Enrique Youssef Other Interventions: Discharge Summary Assessment (RN) Last Done: 10/28/24 16:26 Supervising Physician Co-Signing Physician Notes I personally examined the patient and verified pina points of history and exam, discussed case, and agree with decision making and plan documented by Dr. Sow. Successful PEG placement with EGD yesterday with clipped Phuong- Regalado tear. PEG feeds started yesterday with nutrition recommendations. Hemoglobin stable. Patient having diarrhea for approximately 24 hours, C. difficile tested positive, vancomycin per PEG initiated as above. Patient transferred back to [facility]. Total attending time 38 minutes.
[2024-10-30] MEDS ORDERED: CHERRY SYRUP 5 ML UDP PO SCH (18:00)
[2024-10-30] MEDS ORDERED: VANCOMYCIN HCL 125 MG/2.5ML SOLN PO SCH (18:00)
== END 2024-10-30 15:19 | DRG 146 ==
LOC: ED 11:52 → 3E 16:10 → SUATTDRO 16:10 → 3E 20:00